=== PATIENT | female | born 1980 | race Caucasian/White ===

== ENCOUNTER 2023-09-13 07:17 | Outpatient (REF) | payer OTHER, SELFPAY ==
[2023-09-15 12:07] LABS: H. pylori Stool Ag, EIA Negative (Negative)
== END 2023-09-13 07:18 | disposition home or self-care (01) ==
LOC: LAB 07:17
PROVIDERS: PCP Nurse Practitioner Family
DX: E66.01 Morbid (severe) obesity due to excess calories (principal)
CPT/HCPCS: 87338

== ENCOUNTER 2023-10-07 15:46 | Outpatient (OUT) | payer OTHER, SELFPAY ==
[2023-10-08 12:10] LABS: PTH, Intact 32 pg/mL (15-65)
== END 2023-10-07 15:47 | disposition home or self-care (01) ==
LOC: LAB 15:46
PROVIDERS: PCP Nurse Practitioner Family; Visit Provider Nurse Practitioner Family
DX: R89.9 Unspecified abnormal finding in specimens from other organs, systems and tissues (principal)
CPT/HCPCS: 36415; 83970

== ENCOUNTER 2023-12-17 00:04 | Emergency (ER) | payer OTHER, SELFPAY ==
[2023-12-17 00:09] VITALS: BP 170/86; PULSE 68; RESP 20; TEMP 36.7; O2SAT 100; BMI 49.3
--- OUTSIDE RECORDS SUMMARY | 2023-12-17 00:10 | XMS_ITS | CCD ---
Author Name Unknown Address [address] [place] [address] Organization [facility] Care Team Providers Care Feed In Worker Name Role Phone GIDEON FELIX Admitting Unavailable GIDEON FELIX Primary Care Unavailable GIDEON FELIX Consulting Unavailable ISIDRO, GIDEON Attending Unavailable GIDEON FELIX Primary Care Unavailable GIDEON FELIX Consulting Unavailable ISIDRO, GIDEON Attending Unavailable ISIDRO, GIDEON Admitting Unavailable Problems Active Problems Problem Classification Problem Date Documented Da te Episodic/Chronic Deficiency and other anemia (1 source) Iron deficiency anemia, unspecified; Translations: [IRON DEFICIENCY ANEMIA UNSPECIFIED] Onset: 06-12-2022 Episodic Past or Other Problems Problem Classification Problem Date Documented Da te Episodic/Chronic Deficiency and other anemia (4 sources) Anemia, unspecified; Translations: [ANEMIA UNSPECIFIED] Onset: 06-30-2021 Episodic Results Test Name Value Interpretation Reference Range Facil ity INSULINon 06-12-2022 Insulin 61.2 uIU/mL Critically high 2.6-24.9 [facility] Comment on above: Performed By: #### I NSULIN #### [facility] [address] [address] [address] Rigo Barker CBC AUTO DIFFon 06-11-2022 BASO # 0.1 103/ul Normal 0.0-0.[address] [facility] Comment on above: Performed By: #### F ETIBC #### [facility] [address] [address] [address] Rigo Barker Basophils/100 WBC (Bld) 0.7 % Normal 0.2-2.[address] [facility] Comment on above: Performed By: #### F ETIBC #### [facility] [address] [address] [address] Rigo Barker EO # 0.2 103/ul Normal 0.0-0.[address] [facility] Comment on above: Performed By: #### F ETIBC #### [facility] [address] [place] [address] Dr. Rigo Barker Eosinophils/100 WBC (Bld) 2.7 % Normal 0.9-7.[address] [facility] Comment on above: Performed By: #### F ETIBC #### [facility] [address] [place] [address] Dr. Rigo Barker Erythrocyte distribution width (RBC) [Ratio] 13.9 % Normal 11.0-15.[address] [facility] Comment on above: Performed By: #### F ETIBC #### [facility] [address] [place] [address] Dr. Rigo Barker Hematocrit (Bld) [Volume fraction] 40.6 % Normal 36.0-48.[address] [facility] Comment on above: Performed By: #### F ETIBC #### [facility] [address] [place] [address] Dr. Rigo Barker Hemoglobin (Bld) [Mass/Vol] 13.0 g/dL Normal 12.0-16.[address] [facility] Comment on above: Performed By: #### F ETIBC #### [facility] [address] [place] [address] Dr. Rigo Barker IG # 0.04 10e3/ul Critically high 0.00-0.03 [facility] Comment on above: Performed By: #### F ETIBC #### [facility] [address] [place] [address] Dr. Rigo Barker IG % 0.5 % Normal 0.0-0.[address] [facility] Comment on above: Performed By: #### F ETIBC #### [facility] [address] [place] [address] Dr. Rigo Barker LYMPH # 2.2 103/ul Normal 1.2-3.[address] [facility] Comment on above: Performed By: #### F ETIBC #### [facility] [address] [place] [address] Dr. Rigo Barker Lymphocytes/100 WBC (Bld) 28.9 % Normal 20.5-60.[address] [facility] Comment on above: Performed By: #### F ETIBC #### [facility] [address] [place] [address] Dr. Rigo Barker MANUAL DIFF REQ NO Normal [facility] Comment on above: Performed By: #### F ETIBC #### [facility] [address] [place] [address] Dr. Rigo Barker MCH (RBC) [Entitic mass] 26.0 pg Critically low 26.7-34.[address] [facility] Comment on above: Performed By: #### F ETIBC #### [facility] [address] [place] [address] Dr. Rigo Barker MCHC (RBC) [Mass/Vol] 32.0 g/dL Normal 29.9-35.[address] [facility] Comment on above: Performed By: #### F ETIBC #### [facility] [address] [place] [address] Dr. Rigo Barker MCV (RBC) [Entitic vol] 81.2 fL Normal 81.0-99.[address] [facility] Comment on above: Performed By: #### F ETIBC #### [facility] [address] [place] [address] Dr. Rigo Barker MONO # 0.5 103/ul Normal 0.3-0.[address] [facility] Comment on above: Performed By: #### F ETIBC #### [facility] [address] [place] [address] Dr. Rigo Barker Monocytes/100 WBC (Bld) 7.2 % Normal 1.7-12.[address] [facility] Comment on above: Performed By: #### F ETIBC #### [facility] [address] [place] [address] Dr. Rigo Barker NEUT # 4.5 103/ul Normal 1.4-6.[address] [facility] Comment on above: Performed By: #### F ETIBC #### [facility] [address] [place] [address] Dr. Rigo Barker Neutrophils/100 WBC (Bld) 60.0 % Normal 43.0-75.[address] [facility] Comment on above: Performed By: #### F ETIBC #### [facility] [address] [address] [address] Rigo Barker Platelet mean volume (Bld) [Entitic vol] 10.1 fL Normal 9.5-13.[address] [facility] Comment on above: Performed By: #### F ETIBC #### [facility] [address] [address] [address] Rigo Barker PLT 259 103/ul Normal 150-[address] [facility] Comment on above: Performed By: #### F ETIBC #### [facility] [address] [place] [address] Dr. Rigo Barker RBC 5.00 106/ul Normal 4.20-5.[address] [facility] Comment on above: Performed By: #### F ETIBC #### [facility] [address] [place] [address] Dr. Rigo Barker WBC 7.5 103/ul Normal 4.0-11.[address] [facility] Comment on above: Performed By: #### F ETIBC #### [facility] [address] [place] [address] Dr. Rigo Barker FERRITINon 06-11-2022 Ferritin [Mass/Vol] 44.0 ng/mL Normal 6.2-137.0 [facility] Comment on above: Performed By: #### F ERR #### [facility] [address] [place] [address] Dr. Rigo Barker FREE THYROXINE INDEX T7on FTI 3.06 Normal 1.30-4.[address] [facility] Comment on above: Performed By: #### T SH, T7, LIPID, CMP #### [facility] [address] [place] [address] Dr. Rigo Barker T3U 30.0 % Normal 30.0-39.[address] [facility] Comment on above: Performed By: #### T SH, T7, LIPID, CMP #### [facility] [address] [place] [address] Dr. Rigo Barker T4 [Mass/Vol] 10.20 ug/dL Normal 4.80-13.90 [facility] Comment on above: Performed By: #### T SH, T7, LIPID, CMP #### [facility] [address] [address] [address] Rigo Barker GLYCOHEMOGLOBIN A1Con 2021 ADA RECOMMENDATION SEE BELOW Normal [facility] Comment on above: Result Comment: ADA RECOMMENDED LIMIT 4.0 - 6.0 ADA THERAPEUTIC TARGET < 7.0 ACTION SUGGESTED > 7.0 Performed By: #### A 1C #### [facility] [address] [address] [address] Rigo Barker Glucose [Mass/Vol] 108 mg/dL Normal [facility] Comment on above: Performed By: #### A 1C #### [facility] [address] [place] [address] Dr. Rigo Barker HbA1c (Bld) [Mass fraction] 5.4 % Normal 4.5-6.[address] [facility] Comment on above: Performed By: #### A 1C #### [facility] [address] [address] [address] Rigo Barker IRON AND TIBCon 06-11-2022 % SATURATION 9.8 % Normal [facility] Comment on above: Performed By: #### F ETIBC #### [facility] [address] [address] [address] Rigo Barker Iron [Mass/Vol] 30.0 ug/dL Critically low 50.0-170.0 [facility] Comment on above: Performed By: #### F ETIBC #### [facility] [address] [address] [address] Rigo Barker Performed By: #### I JOSE M #### [facility] [address] [address] [address] Rigo Barker TIBC DIRECT 307.0 ug/dL Normal 250.0-450.0 [facility] Comment on above: Performed By: #### F ETIBC #### [facility] [address] [place] [address] Dr. Rigo Barker LIPID PROFILEon 06-11-2022 CHOL-HDL RATIO NORM SEE BELOW Normal [facility] Comment on above: Result Comment: 3.3 - 4.4 LOW RISK 4.4 - 7.1 AVERAGE RISK 7.1 - 11.0 MODERATE RISK >11.0 HIGH RISK Performed By: #### T SH, T7, LIPID, CMP #### [facility] [address] [address] [address] Rigo Barker Cholesterol [Mass/Vol] 196 mg/dL Normal <=[address] [facility] Comment on above: Performed By: #### T SH, T7, LIPID, CMP #### [facility] [address] [address] [address] Rigo Barker Cholesterol in HDL [Mass/Vol] 62 mg/dL Critically high 40-[address] [facility] Comment on above: Performed By: #### T SH, T7, LIPID, CMP #### [facility] [address] [place] [address] Dr. Rigo Barker Cholesterol in LDL [Mass/Vol] 118.2 mg/dL Normal [facility] Comment on above: Performed By: #### T SH, T7, LIPID, CMP #### [facility] [address] [address] [address] Rigo Barker Cholesterol.total/Cho lesterol in HDL [Mass ratio] 3.2 {ratio} Normal [facility] Comment on above: Performed By: #### T SH, T7, LIPID, CMP #### [facility] [address] [address] [address] Rigo Barker HDL NORMAL > or = 60 mg/dl - LOW CARDIOVASCULAR RISK <40 mg/dl - HIGH CARDIOVASCULAR RISK Normal [facility] Comment on above: Performed By: #### T SH, T7, LIPID, CMP #### [facility] [address] [address] [address] Rigo Barker LDL CALC NORMAL SEE BELOW Normal [facility] Comment on above: Result Comment: <100 mg/dl OPTIMAL 100 - 129 mg/dl NEAR OR ABOVE OPTIMAL 130 - 159 mg/dl BORDERLINE HIGH 160 - 189 mg/dl HIGH >190 mg/dl VERY HIGH Performed By: #### T SH, T7, LIPID, CMP #### [facility] [address] [address] [address] Rigo Barker Triglyceride [Mass/Vol] 79 mg/dL Normal <=[address] [facility] Comment on above: Performed By: #### T SH, T7, LIPID, CMP #### [facility] [address] [address] [address] Rigo Barker VLDL CALC 15.8 mg/dL Normal [facility] Comment on above: Performed By: #### T SH, T7, LIPID, CMP #### [facility] [address] [address] [address] Rigo Barker PROF 14(COMP METB)on 022 Albumin [Mass/Vol] 3.6 g/dL Normal 3.4-5.0 [facility] Comment on above: Performed By: #### T SH, T7, LIPID, CMP #### [facility] [address] [address] [address] Rigo Barker Albumin/Globulin [Mass ratio] 0.9 {ratio} Normal [facility] Comment on above: Performed By: #### T SH, T7, LIPID, CMP #### [facility] [address] [address] [address] Rigo Barker ALP [Catalytic activity/Vol] 80 U/L Normal 46-[address] [facility] Comment on above: Performed By: #### T SH, T7, LIPID, CMP #### [facility] [address] [address] [address] Rigo Barker ALT [Catalytic activity/Vol] 39 U/L Normal 14-[address] [facility] Comment on above: Performed By: #### T SH, T7, LIPID, CMP #### [facility] [address] [address] [address] Rigo Barker Anion gap [Moles/Vol] 15.6 mmol/L Normal [facility] Comment on above: Performed By: #### T SH, T7, LIPID, CMP #### [facility] [address] [address] [address] Rigo Barker AST [Catalytic activity/Vol] 17 U/L Normal 15-[address] [facility] Comment on above: Performed By: #### T SH, T7, LIPID, CMP #### [facility] [address] [place] [address] Dr. Rigo Barker Bilirubin [Mass/Vol] 0.2 mg/dL Normal 0.2-1.[address] [facility] Comment on above: Performed By: #### T SH, T7, LIPID, CMP #### [facility] [address] [place] [address] Dr. Rigo Barker Calcium [Mass/Vol] 9.1 mg/dL Normal 8.5-10.1 [facility] Comment on above: Performed By: #### T SH, T7, LIPID, CMP #### [facility] [address] [place] [address] Dr. Rigo Barker Chloride [Moles/Vol] 103 mmol/L Normal 98-107 [facility] Comment on above: Performed By: #### T SH, T7, LIPID, CMP #### [facility] [address] [place] [address] Dr. Rigo Barker CO2 [Moles/Vol] 24.1 mmol/L Normal 21.0-32.0 [facility] Comment on above: Performed By: #### T SH, T7, LIPID, CMP #### [facility] [address] [place] [address] Dr. Rigo Barker Creatinine [Mass/Vol] 0.89 mg/dL Normal 0.55-1.[address] [facility] Comment on above: Performed By: #### T SH, T7, LIPID, CMP #### [facility] [address] [place] [address] Dr. Rigo Barker EGFR-AF MACANESE >60 Normal >=60 [facility] Comment on above: Performed By: #### T SH, T7, LIPID, CMP #### [facility] [address] [place] [address] Dr. Rigo Barker EGFR-NON AF MACANESE >60 Normal >=[address] [facility] Comment on above: Performed By: #### T SH, T7, LIPID, CMP #### [facility] [address] [address] [address] Rigo Barker Globulin (S) [Mass/Vol] 3.9 g/dL Normal [facility] Comment on above: Performed By: #### T SH, T7, LIPID, CMP #### [facility] [address] [place] [address] Dr. Rigo Barker Glucose [Mass/Vol] 102 mg/dL Normal 74-106 [facility] Comment on above: Performed By: #### T SH, T7, LIPID, CMP #### [facility] [address] [place] [address] Dr. Rigo Barker Potassium [Moles/Vol] 3.7 mmol/L Normal 3.5-5.1 [facility] Comment on above: Performed By: #### T SH, T7, LIPID, CMP #### [facility] [address] [place] [address] Dr. Rigo Barker Protein [Mass/Vol] 7.5 g/dL Normal 6.4-8.2 [facility] Comment on above: Performed By: #### T SH, T7, LIPID, CMP #### [facility] [address] [place] [address] Dr. Rigo Barker Sodium [Moles/Vol] 139 mmol/L Normal 136-145 [facility] Comment on above: Performed By: #### T SH, T7, LIPID, CMP #### [facility] [address] [place] [address] Dr. Rigo Barker Urea nitrogen [Mass/Vol] 12.0 mg/dL Normal 7.0-18.0 [facility] Comment on above: Performed By: #### T SH, T7, LIPID, CMP #### [facility] [address] [place] [address] Dr. Rigo Barker Urea nitrogen/Creatinine [Mass ratio] 13.5 mg/mg Normal [facility] Comment on above: Performed By: #### T SH, T7, LIPID, CMP #### [facility] [address] [place] [address] Dr. Rigo Barker TSHon 06-11-2022 TSH 2.871 uIU/mL Normal 0.358-3.740 [facility] Comment on above: Performed By: #### T SH, T7, LIPID, CMP #### [facility] [address] [place], [place] [id number] Dr. Rigo Barker CBC AUTO DIFFon 06-30-2021 BASO # 0.1 103/ul Normal 0.0-0.[address] [facility] Comment on above: Performed By: #### C BC #### [facility] [address] [place], [place] [id number] Alix Cecile Basophils/100 WBC (Bld) 0.6 % Normal 0.2-2.[address] [facility] Comment on above: Performed By: #### C BC #### [facility] [address] [place] [address] Alix Cecile EO # 0.2 103/ul Normal 0.0-0.[address] [facility] Comment on above: Performed By: #### C BC #### [facility] [address] [place] [address] Alix Cecile Eosinophils/100 WBC (Bld) 2.5 % Normal 0.9-7.[address] [facility] Comment on above: Performed By: #### C BC #### [facility] [address] [place], [place] [id number] Alix Cecile Erythrocyte distribution width (RBC) [Ratio] 14.5 % Normal 11.0-15.[address] [facility] Comment on above: Performed By: #### C BC #### [facility] [address] [place] [address] Alix Cecile Hematocrit (Bld) [Volume fraction] 34.8 % Critically low 36.0-48.[address] [facility] Comment on above: Performed By: #### C BC #### [facility] [address] [place], [place] [id number] Alix Cecile Hemoglobin (Bld) [Mass/Vol] 11.2 g/dL Critically low 12.0-16.[address] [facility] Comment on above: Performed By: #### C BC #### [facility] [address] [place] [address] Alix Cecile IG # 0.04 10e3/ul Critically high 0.00-0.03 [facility] Comment on above: Performed By: #### C BC #### [facility] [address] [place], [place] [id number] Alixjessi Huber IG % 0.5 % Normal 0.0-0.[address] [facility] Comment on above: Performed By: #### C BC #### [facility] [address] [place] [address] Alixjessi Huber LYMPH # 2.5 103/ul Normal 1.2-3.[address] [facility] Comment on above: Performed By: #### C BC #### [facility] [address] [place] [address] Alix Huber Lymphocytes/100 WBC (Bld) 30.1 % Normal 20.5-60.[address] [facility] Comment on above: Performed By: #### C BC #### [facility] [address] [place] [address] Alix Huber MANUAL DIFF REQ NO Normal [facility] Comment on above: Performed By: #### C BC #### [facility] [address] [place], [place] [id number] Alix Huber MCH (RBC) [Entitic mass] 27.1 pg Normal 26.7-34.[address] [facility] Comment on above: Performed By: #### C BC #### [facility] [address] [place] [address] Alix Huber MCHC (RBC) [Mass/Vol] 32.2 g/dL Normal 29.9-35.[address] [facility] Comment on above: Performed By: #### C BC #### [facility] [address] [place], [place] [id number] Alix Huber MCV (RBC) [Entitic vol] 84.1 fL Normal 81.0-99.[address] [facility] Comment on above: Performed By: #### C BC #### [facility] [address] [place] [address] Alix Cecile MONO # 0.6 103/ul Normal 0.3-0.[address] [facility] Comment on above: Performed By: #### C BC #### [facility] [address] [place], [place] [address] Alix De La Vegaen Monocytes/100 WBC (Bld) 6.7 % Normal 1.7-12.0 [facility] Comment on above: Performed By: #### C BC #### [facility] [address] [place], [place] [id number] Alixjessi De La Vegaen NEUT # 4.9 103/ul Normal 1.4-6.5 [facility] Comment on above: Performed By: #### C BC #### [facility] [address] [place], [place] [id number] Alix De La Vegaen Neutrophils/100 WBC (Bld) 59.6 % Normal 43.0-75.0 [facility] Comment on above: Performed By: #### C BC #### [facility] [address] [place], [place] [id number] Alix Huber Platelet mean volume (Bld) [Entitic vol] 10.1 fL Normal 9.5-13.5 [facility] Comment on above: Performed By: #### C BC #### [facility] [address] [place], [place] [id number] Alixjessi De La Vegaen PLT 299 103/ul Normal 150-450 [facility] Comment on above: Performed By: #### C BC #### [facility] [address] [place], [place] [id number] Alix Cecile RBC 4.14 106/ul Critically low 4.20-5.40 [facility] Comment on above: Performed By: #### C BC #### [facility] [address] [place], [place] [id number] Alixjessi De La Vegaen WBC 8.3 103/ul Normal 4.0-11.0 [facility] Comment on above: Performed By: #### C BC #### [facility] [address] [place], [place] [id number] Alix Huber IRONon 06-30-2021 Iron [Mass/Vol] 40.0 ug/dL Normal 37.0-170.0 [facility] Comment on above: Performed By: #### F ETIBC #### [facility] [address] [place], [place] [address] Dr. Rigo Barker Encounters Encounter Date Encounter Type Care Provider Facility Start: 06-12-2022 Encounter for genera l adult medical examination without abnormal findings GIDEON FELIX [facility] Start: 06-11-2022 End: 06-12-2022 ambulatory GIDEON FELIX Facility:[facility] Start: 06-11-2022 End: 06-12-2022 Encounter for general adult medical examination without abnormal findings GIDEON FELIX Facility:[facility] Start: 06-30-2021 End: 07-01-2021 ambulatory GIDEON FELIX Facility:[facility] Payers Date Payer Category Payer Unknown [id number] 1980 Unknown [id number] 1959 Private Health Insurance [id number] Summary Purpose Family History No Family History Records Found Advance Directives No Advanced Directives Records Found Additional Source Comments INFORMATION SOURCE (unrecogn ized section and content) DATE CREATED AUTHOR 06/16/2022 [facility] FOR RECORDS PERTAINING TO PATIENTS WHO ARE OR HAVE BEEN ENROLLED IN A CHEMICAL DEPENDENCY/SUBSTANCEABUSE PROGRAM, SOME INFORMATION MAY BE OMITTED. This clinical summary was aggregated from multiple sources. Caution should be exercised in using it in the provision of clinical care. This summary normalizes information from multiple sources, and as a consequence, information in this document may materially change the coding, format and clinical context of patient data. In addition, data may be omitted in some cases. CLINICAL DECISIONS SHOULD BE BASED ON THE PRIMARY CLINICAL RECORDS. [facility] provides no warranty or guarantee of the accuracy or completeness of information in this document.
--- NOTE | 2023-12-17 00:50 | ED_ITS ---
HPI - Abdominal Pain General Chief Complaint: Abdominal Pain Stated Complaint: ABD PAIN Time Seen by Provider: 12/17/23 00:30 History of Present Illness HPI narrative: gastric bypass 11/09. Presents complaining of right CVA pain that started tonight and dry heaving and nausea. Pain has decreased some. Denies or fever. Related Data Home Medications Medication Instructions Recorded Confirmed calcium citrate 315 mg-vitamin D3 1 tab PO DAILY 12/17/23 12/17/23 5 mcg (200 unit) tablet citalopram 20 mg tablet mg 12/17/23 ferrous sulfate 325 mg (65 mg mg 12/17/23 iron) tablet omeprazole 20 mg capsule,delayed mg 12/17/23 release ondansetron HCl 4 mg tablet mg 12/17/23 thiamine HCl (vitamin B1) 500 mg 500 mg PO DAILY 12/17/23 12/17/23 tablet ursodiol 300 mg capsule mg 12/17/23 Allergies Allergy/AdvReac Type Severity Reaction Status Date / Time No Known Drug Allergies Allergy Verified 12/17/23 00:17 Review of Systems ROS Status of ROS 10 or more systems reviewed and unremark able except as noted in history and below [facility] Social History Smoking status: Never smoker Exam Constitutional Vital Signs, click to edit/add: Last Vital Signs Temp 98.0 F 12/17/23 00:09 Pulse 65 12/17/23 03:35 Resp 16 12/17/23 03:35 BP 142/80 H 12/17/23 03:35 Pulse Ox 99 12/17/23 03:35 O2 Del Method Room Air 12/17/23 03:35 Common normals: oriented x3, healthy appearing, alert and well nourished Eye Common normals: EOMs intact bilaterally and conjunctivae normal Respiratory Common normals: normal respiratory effort, no retractions and no use of accessory muscles Cardio Common normals: regular rate, regular rhythm, S1 normal heart sound and S2 normal heart sound GI Common normals: Normal to inspection, nondistended, normoactive bowel sounds present Other: right CVA tenderness Extremity Common normals: normal to inspection and full ROM Neuro Common normals: oriented x3, CN's II-XII intact bilaterally, moves all extremities and no focal motor deficits Psych Appearance: grossly normal Course Vital Signs Vital signs: Vital Signs Temperature 98.0 F 12/17/23 00:09 Pulse Rate 68 12/17/23 00:09 Respiratory Rate 20 12/17/23 00:09 Blood Pressure 170/86 H 12/17/23 00:09 Pulse Oximetry 100 12/17/23 00:09 Oxygen Delivery Method Room Air 12/17/23 00:09 Temperature 98.0 F 12/17/23 00:09 Pulse Rate 65 12/17/23 03:35 Respiratory Rate 16 12/17/23 03:35 Blood Pressure 142/80 H 12/17/23 03:35 Pulse Oximetry 99 12/17/23 03:35 Oxygen Delivery Method Room Air 12/17/23 03:35 MDM - Abdominal Pain MDM Narrative Medical decision making narrative: patient presents with right CVA pain and nausea/dry heaving. UA with microscopic hematuria but no infection. CT with evidence of 3mm distal right ureter stone with mild hydronephrosis. Patient is feeling better after hydration. toradol and reglan . Discharged home in improved condition and is to follow up with Urology Lab Data Labs: Lab Results 12/17/23 12/17/23 Range/Units 00:23 00:37 WBC 10.9 (4.0-11.0) 10^3/uL RBC 4.08 L (4.20-5.40) 10^6/uL Hgb 10.6 L (12.0-16.0) g/dL Hct 33.9 L (36.0-48.0) % MCV 83.1 (81.0-99.0) fL MCH 26.0 L (26.7-34.0) pg MCHC 31.3 (29.9-35.2) g/dL RDW 16.5 H (11.0-15.0) % Plt Count 316 (150-450) 10^3/uL MPV 11.7 (9.5-13.5) fL Neut % (Auto) 76.4 H (43.0-75.0) % Lymph % (Auto) 14.1 L (20.5-60.0) % [place] % (Auto) 7.0 (1.7-12.0) % Eos % (Auto) 2.0 (0.9-7.0) % Baso % (Auto) 0.2 (0.2-2.0) % Neut # (Auto) 8.4 H (1.4-6.5) 10^3/uL Lymph # (Auto) 1.5 (1.2-3.8) 10^3/uL [place] # (Auto) 0.8 (0.3-0.8) 10^3/uL Eos # (Auto) 0.2 (0.0-0.7) 10^3/uL Baso # (Auto) 0.0 (0.0-0.1) 10^3/uL Abs Immat Gran (auto) 0.03 (0.00-0.03) 10^3/uL Imm/Tot Granulo (auto) 0.3 (0.0-0.5) % Sodium 140 (136-145) mmol/L Potassium 3.2 L (3.5-5.1) mmol/L Chloride 105 (98-107) mmol/L Carbon Dioxide 22.1 (21.0-32.0) mmol/L Anion Gap 16.1 BUN 13.0 (7.0-18.0) mg/dL Creatinine 0.86 (0.55-1.02) mg/dL Est GFR ( Amer) >60 (>=60) Est GFR (Non-Af Amer) >60 (>=60) BUN/Creatinine Ratio 15.1 Glucose 139 H (74-106) mg/dL Lactate 1.8 (0.4-2.0) mmol/L Calcium 9.5 (8.5-10.1) mg/dL Total Bilirubin 0.4 (0.2-1.0) mg/dL AST 15 (15-37) U/L ALT 24 (14-59) U/L Alkaline Phosphatase 101 (46-116) U/L Troponin I High Sens 10.5 (4.0-51.3) pg/mL Total Protein 7.6 (6.4-8.2) g/dL Albumin 3.7 (3.4-5.0) g/dL Globulin 3.9 g/dL Albumin/Globulin Ratio 0.9 Lipase 76.0 (16.0-77.0) U/L Urine Color Yellow (YELLOW) Urine Clarity Clear (CLEAR) Urine pH 5.5 (5.0-9.0) Ur Specific [place] >=1.030 A (1.005-1.025) Urine Protein 30 A (NEG/TRACE) mg/dL Urine Glucose (UA) Negative (NEGATIVE) mg/dL Urine Ketones >=80 A (NEGATIVE) mg/dL Urine Occult Blood Large A (NEGATIVE) Urine Nitrite Negative (NEGATIVE) Urine Bilirubin Negative (NEGATIVE) Urine Urobilinogen 0.2 (0.2-1.0) EU/dL Ur Leukocyte Esterase Negative (NEGATIVE) Urine RBC 5-10 A (0-2) #/HPF Urine WBC 0-2 A (NONE SEEN) #/HPF Ur Squamous Epith Cells Few A (NONE/RARE) #/LPF Urine Crystals None seen (None Seen) #/HPF Urine Bacteria None seen (NONE SEEN) #/HPF Urine Casts None seen (NONE SEEN) #/LPF Urine Mucus None seen (NONE SEEN) Imaging Data Abdominal x-ray: Radiologist's impression: ITS Impressions Abdomen/Pelvis CT 12/17/23 00:52 IMPRESSION: 1. There is a 0.3 cm calculus in the distal right ureter with mild right hydroureter and hydronephrosis. 2. Cholelithiasis without evidence of acute inflammation. 3. Normal appendix. Electronically authenticated by: Dudley ADAMS Date: 12/17/2023 01:48 Discharge Plan Discharge Chief Complaint: Abdominal Pain Clinical Impression: Calculus of kidney Patient Disposition: Home, Self-Care Condition: Good Mode of Transportation: Private Vehicle Prescriptions / Home Meds: No Action ondansetron HCl 4 mg tablet citalopram 20 mg tablet ferrous sulfate 325 mg (65 mg iron) tablet ursodiol 300 mg capsule omeprazole 20 mg capsule,delayed release(DR/EC) calcium citrate-vitamin D3 315 mg-5 mcg (200 unit) tablet 1 tab PO DAILY thiamine HCl (vitamin B1) 500 mg tablet 500 mg PO DAILY Instructions: Kidney Stones (ED) Additional Instructions: follow up with Urology. Drink plenty of fluids Stand Alone Forms: Portal Instructions Referrals: GIDEON FELIX [Primary Care Provider] - 1 week Discharge Date/Time: 12/17/23 03:30
--- NOTE | 2023-12-17 00:52 | CT_ITS ---
[address] [address] Patient Name: LEWIS HAY MRN: [id number] date: 1980 Sex: F Assigned Patient Location: ER Current Patient Location: ER Accession/Order Number: [id number] Exam Date: 12/17/2023 01:03 Report Date: 12/17/2023 01:48 At the request of: JAVIER DÍAZ Procedure: CT abdomen pelvis wo con EXAM: CT abdomen pelvis wo con HISTORY: right flank pain COMPARISON: None. TECHNIQUE: Noncontrast axial CT images through the abdomen and pelvis were obtained with coronal and sagittal reformats. Dose reduction techniques were achieved by using automated exposure control and/or adjustment of mA and/or kV according to patient size and/or use of iterative reconstruction technique. FINDINGS: The visualized portions of the lung bases are clear. Abdomen: Please note that the sensitivity for detection of focal lesions or vascular disease is markedly reduced without intravenous contrast. The liver and spleen are unremarkable. There is no intra or extrahepatic biliary duct dilatation. There is cholelithiasis without evidence of acute inflammation. There is a 0.3 cm calculus in the distal right ureter with mild right hydroureter and hydronephrosis in addition to perinephric and periureteral fat stranding. The patient is status post a gastric bypass. Otherwise, the pancreas, adrenal glands, left kidney, and bowel loops, including the appendix, are unremarkable. There is no mesenteric or retroperitoneal lymphadenopathy. Pelvis: The bladder and rectum are unremarkable. There is no iliac or inguinal lymphadenopathy. The uterus is present. The ovaries appear within normal limits by CT. Bone windows show no aggressive osseous lesions. CT/CT abdomen pelvis wo con IMPRESSION: 1. There is a 0.3 cm calculus in the distal right ureter with mild right hydroureter and hydronephrosis. 2. Cholelithiasis without evidence of acute inflammation. 3. Normal appendix. Electronically authenticated by: Dudley ADAMS Date: 12/17/2023 01:48
[2023-12-17 01:05] LABS: Basophils Percent Auto 0.2 % (0.2-2.0); Eosinophils Absolute Auto 0.2 10^3/uL (0.0-0.7); Hematocrit 33.9 % (36.0-48.0); Hemoglobin 10.6 g/dL (12.0-16.0); Immature Granulocytes Abs Auto 0.03 10^3/uL (0.00-0.03); Immature Granulocytes Pct Auto 0.3 % (0.0-0.5); Lymphocytes Absolute Auto 1.5 10^3/uL (1.2-3.8); Lymphocytes Percent Auto 14.1 % (20.5-60.0); Mean Corpuscular HGB Conc 31.3 g/dL (29.9-35.2); Mean Corpuscular Volume 83.1 fL (81.0-99.0); Mean Platelet Volume 11.7 fL (9.5-13.5); Monocytes Absolute Auto 0.8 10^3/uL (0.3-0.8); Neutrophils Absolute Auto 8.4 10^3/uL (1.4-6.5); Neutrophils Percent Auto 76.4 % (43.0-75.0); Platelet Count 316 10^3/uL (150-450); Red Blood Count 4.08 10^6/uL (4.20-5.40); Red Cell Distribution Width 16.5 % (11.0-15.0); White Blood Count 10.9 10^3/uL (4.0-11.0)
[2023-12-17 01:10] LABS: Bilirubin Urine NEGATIVE (NEGATIVE); Blood Urine LARGE (NEGATIVE); Clarity Urine CLEAR (CLEAR); Color Urine YELLOW (YELLOW); Glucose Urine UA NEGATIVE (NEGATIVE); Ketones Urine >=80 mg/dL (NEGATIVE); Leukocyte Esterase Urine NEGATIVE (NEGATIVE); Nitrite Urine NEGATIVE (NEGATIVE); Protein Urine 30 mg/dL (NEG/TRACE); Specific Gravity Urine >=1.030 (1.005-1.025); Urobilinogen Urine 0.2 EU/dL (0.2-1.0); pH Urine 5.5 (5.0-9.0)
[2023-12-17] MEDS: ONDANSETRON PF 4 MG/2 ML VIAL IV (01:17)
[2023-12-17] MEDS: KETOROLAC TROMETHAMINE 30 MG/ML VIAL IVP (01:17)
[2023-12-17 01:18] LABS: Urine Microscopic Indicated YES
[2023-12-17 01:20] LABS: Lactate/Lactic Acid 1.8 mmol/L (0.4-2.0)
[2023-12-17 01:27] LABS: Alanine Aminotransferase 24 U/L (14-59); Albumin Globulin Ratio 0.9; Albumin Level 3.7 g/dL (3.4-5.0); Alkaline Phosphatase 101 U/L (46-116); Anion Gap 16.1; Aspartate Amino Transferase 15 U/L (15-37); BUN Creatinine Ratio 15.1; Bilirubin Total 0.4 mg/dL (0.2-1.0); Calcium 9.5 mg/dL (8.5-10.1); Carbon Dioxide 22.1 mmol/L (21.0-32.0); Chloride 105 mmol/L (98-107); Estimated GFR (African America >60 (>=60); Estimated GFR (Non-African Ame >60 (>=60); Globulin 3.9 g/dL; Glucose 139 mg/dL (74-106); Potassium 3.2 mmol/L (3.5-5.1); Sodium 140 mmol/L (136-145); Total Protein 7.6 g/dL (6.4-8.2); Troponin I High Sensitivity 10.5 pg/mL (4.0-51.3)
[2023-12-17 01:39] LABS: Bacteria Urine NONE SEEN #/HPF (NONE SEEN); Cast Seen? NONE SEEN #/LPF (NONE SEEN); Crystals Seen? None Seen #/HPF (None Seen); Mucus Urine NONE SEEN (NONE SEEN); Squamous Epithelial Cell Urine FEW #/LPF (NONE/RARE); WBC Urine 0-2 #/HPF (NONE SEEN)
[2023-12-17 01:53] VITALS: BP 158/80; PULSE 63; RESP 16; O2SAT 100
[2023-12-17] MEDS: 0.9 % SODIUM CHLORIDE 1,000 ML 999 ML IV (02:19)
[2023-12-17] MEDS: METOCLOPRAMIDE HCL 10 MG/2 ML VIAL IVP (02:20)
[2023-12-17] MEDS: TAMSULOSIN HCL 0.4 MG CAPSULE PO (03:20)
[2023-12-17 03:35] VITALS: BP 142/80; PULSE 65; RESP 16; O2SAT 99
== END 2023-12-17 03:30 | disposition home or self-care (01) ==
PROVIDERS: Emergency Provider Internal Medicine; PCP Nurse Practitioner Family
DX: N13.2 Hydronephrosis with renal and ureteral calculous obstruction (principal); Z79.899 Other long term (current) drug therapy
CPT/HCPCS: 36415; 74176; 80053; 81001; 83605; 83690; 84484; 85025; 96374; 96375; 99284; J1885; J2405; J2765

== ENCOUNTER 2023-12-27 13:49 | Outpatient (OUT) | payer OTHER, SELFPAY ==
[2023-12-27 14:22] LABS: Basophils Percent Auto 0.3 % (0.2-2.0); Eosinophils Absolute Auto 0.7 10^3/uL (0.0-0.7); Eosinophils Percent Auto 8.8 % (0.9-7.0); Hematocrit 31.9 % (36.0-48.0); Immature Granulocytes Abs Auto 0.01 10^3/uL (0.00-0.03); Immature Granulocytes Pct Auto 0.1 % (0.0-0.5); Lymphocytes Absolute Auto 1.9 10^3/uL (1.2-3.8); Lymphocytes Percent Auto 24.5 % (20.5-60.0); Mean Corpuscular HGB Conc 31.3 g/dL (29.9-35.2); Mean Corpuscular Hemoglobin 26.2 pg (26.7-34.0); Mean Corpuscular Volume 83.5 fL (81.0-99.0); Mean Platelet Volume 11.1 fL (9.5-13.5); Monocytes Absolute Auto 0.8 10^3/uL (0.3-0.8); Monocytes Percent Auto 10.1 % (1.7-12.0); Neutrophils Absolute Auto 4.4 10^3/uL (1.4-6.5); Neutrophils Percent Auto 56.2 % (43.0-75.0); Platelet Count 302 10^3/uL (150-450); Red Blood Count 3.82 10^6/uL (4.20-5.40); Red Cell Distribution Width 16.5 % (11.0-15.0); White Blood Count 7.8 10^3/uL (4.0-11.0)
[2023-12-27 14:54] LABS: Percent Iron Saturation 9.3 %
[2023-12-27 14:58] LABS: Alanine Aminotransferase 25 U/L (14-59); Albumin Globulin Ratio 0.9; Alkaline Phosphatase 76 U/L (46-116); Anion Gap 11.1; Aspartate Amino Transferase 16 U/L (15-37); BUN Creatinine Ratio 16.2; Bilirubin Total 0.3 mg/dL (0.2-1.0); Calcium 8.7 mg/dL (8.5-10.1); Carbon Dioxide 27.1 mmol/L (21.0-32.0); Chloride 105 mmol/L (98-107); Estimated GFR (African America >60 (>=60); Estimated GFR (Non-African Ame >60 (>=60); Globulin 3.5 g/dL; Glucose 84 mg/dL (74-106); Magnesium 1.5 mg/dL (1.8-2.4); Phosphorus 2.4 mg/dL (2.6-4.7); Potassium 3.2 mmol/L (3.5-5.1); Sodium 140 mmol/L (136-145); Total Protein 6.5 g/dL (6.4-8.2)
[2024-01-02 20:07] LABS: Vitamin B1 (Thiamine), Blood 156.9 nmol/L (66.5-200.0)
== END 2023-12-27 13:50 | disposition home or self-care (01) ==
LOC: LAB 13:49
PROVIDERS: PCP Nurse Practitioner Family
DX: K90.9 Intestinal malabsorption, unspecified (principal); Z98.84 Bariatric surgery status; I10 Essential (primary) hypertension; M19.90 Unspecified osteoarthritis, unspecified site; R60.9 Edema, unspecified; K21.00 Gastro-esophageal reflux disease with esophagitis, without bleeding
CPT/HCPCS: 36415; 80053; 82306; 82607; 82728; 82746; 83540; 83550; 83735; 84100; 84425; 85025

== ENCOUNTER 2024-05-01 11:23 | Outpatient (OUT) | payer OTHER, SELFPAY ==
--- OUTSIDE RECORDS SUMMARY | 2024-05-01 11:29 | XMS_ITS | CCD ---
Author Organization [facility] Care Team Providers Care Chief Of Pediatric Urology Name Role Phone GIDEON FELIX Admitting Unavailable GIDEON FELIX Primary Care Unavailable ISIDRO, GIDEON Consulting Unavailable ISIDRO, GIDEON Attending Unavailable ISIDRO, GIDEON Primary Care Unavailable ISIDRO, GIDEON Consulting Unavailable ISIDRO, GIDEON Attending Unavailable ISIDRO, [...] 06-12-2022 Insulin 61.2 uIU/mL Critically high 2.6-24.9 [facility] Comment on above: Performed By: #### I NSULIN #### [facility] [address] [place] [address] Dr. Rigo Barker CBC AUTO DIFFon 06-11-2022 BASO # 0.1 103/ul Normal 0.0-0.1 [facility] Comment on above: Performed By: #### F ETIBC #### [facility] [address] [address] [address] Rigo Barker Basophils/100 WBC (Bld) 0.7 % Normal 0.2-2.0 [facility] Comment on above: Performed By: #### F ETIBC #### [facility] [address] [place] [address] Dr. Rigo Barker EO # 0.2 103/ul Normal 0.0-0.7 [facility] Comment on above: Performed By: #### F ETIBC #### [facility] [address] [place] [address] Dr. Rigo Barker Eosinophils/100 WBC (Bld) 2.7 % Normal 0.9-7.0 [facility] Comment on above: Performed By: #### F ETIBC #### [facility] [address] [place] [address] Dr. Rigo Barker Erythrocyte distribution width (RBC) [Ratio] 13.9 % Normal 11.0-15.0 [facility] Comment on above: Performed By: #### F ETIBC #### [facility] [address] [place] [address] Dr. Rigo Barker Hematocrit (Bld) [Volume fraction] 40.6 % Normal 36.0-48.0 [facility] Comment on above: Performed By: #### F ETIBC #### [facility] [address] [place] [address] Dr. Rigo Barker Hemoglobin (Bld) [Mass/Vol] 13.0 g/dL Normal 12.0-16.0 [facility] Comment on above: Performed By: #### F ETIBC #### [facility] [address] [place] [address] Dr. Rigo Barker IG # 0.04 10e3/ul Critically high 0.00-0.03 [facility] Comment on above: Performed By: #### F ETIBC #### [facility] [address] [place] [address] Dr. Rigo Barker IG % 0.5 % Normal 0.0-0.5 [facility] Comment on above: Performed By: #### F ETIBC #### [facility] [address] [place] [address] Dr. Rigo Barker LYMPH # 2.2 103/ul Normal 1.2-3.8 [facility] Comment on above: Performed By: #### F ETIBC #### [facility] [address] [place] [address] Dr. Rigo Barker Lymphocytes/100 WBC (Bld) 28.9 % Normal 20.5-60.0 [facility] Comment on above: Performed By: #### F ETIBC #### [facility] [address] [place] [address] Dr. Rigo Barker MANUAL DIFF REQ NO Normal [facility] Comment on above: Performed By: #### F ETIBC #### [facility] [address] [place] [address] Dr. Rigo Barker MCH (RBC) [Entitic mass] 26.0 pg Critically low 26.7-34.0 [facility] Comment on above: Performed By: #### F ETIBC #### [facility] [address] [place] [address] Dr. Rigo Barker MCHC (RBC) [Mass/Vol] 32.0 g/dL Normal 29.9-35.2 [facility] Comment on above: Performed By: #### F ETIBC #### [facility] [address] [place] [address] Dr. Rigo Barker MCV (RBC) [Entitic vol] 81.2 fL Normal 81.0-99.0 [facility] Comment on above: Performed By: #### F ETIBC #### [facility] [address] [place] [address] Dr. Rigo Barker MONO # 0.5 103/ul Normal 0.3-0.8 [facility] Comment on above: Performed By: #### F ETIBC #### [facility] [address] [place] [address] Dr. Rigo Barker Monocytes/100 WBC (Bld) 7.2 % Normal 1.7-12.0 [facility] Comment on above: Performed By: #### F ETIBC #### [facility] [address] [place] [address] Dr. Rigo Barker NEUT # 4.5 103/ul Normal 1.4-6.5 [facility] Comment on above: Performed By: #### F ETIBC #### [facility] [address] [place] [address] Dr. Rigo Barker Neutrophils/100 WBC (Bld) 60.0 % Normal 43.0-75.0 [facility] Comment on above: Performed By: #### F ETIBC #### [facility] [address] [place] [address] Dr. Rigo Barker Platelet mean volume (Bld) [Entitic vol] 10.1 fL Normal 9.5-13.5 [facility] Comment on above: Performed By: #### F ETIBC #### [facility] [address] [place] [address] Dr. Rigo Barker PLT 259 103/ul Normal 150-450 [facility] Comment on above: Performed By: #### F ETIBC #### [facility] [address] [place] [address] Dr. Rigo Barker RBC 5.00 106/ul Normal 4.20-5.40 [facility] Comment on above: Performed By: #### F ETIBC #### [facility] [address] [place] [address] Dr. Rigo Barker WBC 7.5 103/ul Normal 4.0-11.0 [facility] Comment on above: Performed By: #### F ETIBC #### [facility] [address] [place] [address] Dr. Rigo Barker FERRITINon 06-11-2022 Ferritin [Mass/Vol] 44.0 ng/mL Normal 6.2-137.0 [facility] Comment on above: Performed By: #### F ERR #### [facility] [address] [place] [address] Dr. Rigo Barker FREE THYROXINE INDEX T7on FTI 3.06 Normal 1.30-4.50 [facility] Comment on above: Performed By: #### T SH, T7, LIPID, CMP #### [facility] [address] [place] [address] Dr. Rigo Barker T3U 30.0 % Normal 30.0-39.0 [facility] Comment on above: Performed By: #### T SH, T7, LIPID, CMP #### [facility] [address] [place] [address] Dr. Rigo Barker T4 [Mass/Vol] 10.20 ug/dL Normal 4.80-13.90 [facility] Comment on above: Performed By: #### T SH, T7, LIPID, CMP #### [facility] [address] [address] [address] Rigo Barker GLYCOHEMOGLOBIN A1Con 2021 ADA RECOMMENDATION SEE BELOW Normal [facility] Comment on above: Result Comment: ADA RECOMMENDED LIMIT 4.0 - 6.0 ADA THERAPEUTIC TARGET < 7.0 ACTION SUGGESTED > 7.0 Performed By: #### A 1C #### [facility] [address] [address] [address] Rigo Barker Glucose [Mass/Vol] 108 mg/dL Normal [facility] Comment on above: Performed By: #### A 1C #### [facility] [address] [address] [address] Rigo Barker HbA1c (Bld) [Mass fraction] 5.4 % Normal 4.5-6.2 [facility] Comment on above: Performed By: #### A 1C #### [facility] [address] [address] [address] Rigo Barker IRON AND TIBCon 06-11-2022 % SATURATION 9.8 % Normal [facility] Comment on above: Performed By: #### F ETIBC #### [facility] [address] [address] [address] Rigo Barker Iron [Mass/Vol] 30.0 ug/dL Critically low 50.0-170.0 [facility] Comment on above: Performed By: #### F ETIBC #### [facility] [address] [address] [address] Rigo Barker Performed By: #### I JOSE M #### [facility] [address] [address] [address] Rigo Barker TIBC DIRECT 307.0 ug/dL Normal 250.0-450.0 [facility] Comment on above: Performed By: #### F ETIBC #### [facility] [address] [place] [address] Dr. Rigo Barker LIPID PROFILEon 06-11-2022 CHOL-HDL RATIO NORM SEE BELOW Normal [facility] Comment on above: Result Comment: 3.3 - 4.4 LOW RISK 4.4 - 7.1 AVERAGE RISK 7.1 - 11.0 MODERATE RISK >11.0 HIGH RISK Performed By: #### T SH, T7, LIPID, CMP #### [facility] [address] [address] [address] Rigo Barker Cholesterol [Mass/Vol] 196 mg/dL Normal <=200 [facility] Comment on above: Performed By: #### T SH, T7, LIPID, CMP #### [facility] [address] [address] [address] Rigo Barker Cholesterol in HDL [Mass/Vol] 62 mg/dL Critically high 40-60 [facility] Comment on above: Performed By: #### T SH, T7, LIPID, CMP #### [facility] [address] [address] [address] Rigo Barker Cholesterol in LDL [Mass/Vol] 118.2 mg/dL Normal [facility] Comment on above: Performed By: #### T SH, T7, LIPID, CMP #### [facility] [address] [address] [address] Rigo Barker Cholesterol.total/Cho lesterol in HDL [Mass ratio] 3.2 {ratio} Normal [facility] Comment on above: Performed By: #### T SH, T7, LIPID, CMP #### [facility] [address] [place] [address] Dr. Rigo Barker HDL NORMAL > or = 60 mg/dl - LOW CARDIOVASCULAR RISK <40 mg/dl - HIGH CARDIOVASCULAR RISK Normal [facility] Comment on above: Performed By: #### T SH, T7, LIPID, CMP #### [facility] [address] [address] [address] Rigo Barker LDL CALC NORMAL SEE BELOW Normal [facility] Comment on above: Result Comment: <100 mg/dl OPTIMAL 100 - 129 mg/dl NEAR OR ABOVE OPTIMAL 130 - 159 mg/dl BORDERLINE HIGH 160 - 189 mg/dl HIGH >190 mg/dl VERY HIGH Performed By: #### T SH, T7, LIPID, CMP #### [facility] [address] [address] [address] Rigo Barker Triglyceride [Mass/Vol] 79 mg/dL Normal <=150 [facility] Comment on above: Performed By: #### T SH, T7, LIPID, CMP #### [facility] [address] [address] [address] Rigo Barker VLDL CALC 15.8 mg/dL Normal [facility] Comment on above: Performed By: #### T SH, T7, LIPID, CMP #### [facility] [address] [address] [address] Rigo Barker PROF 14(COMP METB)on 022 Albumin [Mass/Vol] 3.6 g/dL Normal 3.4-5.0 [facility] Comment on above: Performed By: #### T SH, T7, LIPID, CMP #### [facility] [address] [place] [address] Dr. Rigo Barker Albumin/Globulin [Mass ratio] 0.9 {ratio} Normal [facility] Comment on above: Performed By: #### T SH, T7, LIPID, CMP #### [facility] [address] [address] [address] Rigo Barker ALP [Catalytic activity/Vol] 80 U/L Normal 46-116 [facility] Comment on above: Performed By: #### T SH, T7, LIPID, CMP #### [facility] [address] [place] [address] Dr. Rigo Barker ALT [Catalytic activity/Vol] 39 U/L Normal 14-59 [facility] Comment on above: Performed By: #### T SH, T7, LIPID, CMP #### [facility] [address] [address] [address] Rigo Barker Anion gap [Moles/Vol] 15.6 mmol/L Normal [facility] Comment on above: Performed By: #### T SH, T7, LIPID, CMP #### [facility] [address] [address] [address] Rigo Barker AST [Catalytic activity/Vol] 17 U/L Normal 15-37 [facility] Comment on above: Performed By: #### T SH, T7, LIPID, CMP #### [facility] [address] [place] [address] Dr. Rigo Barker Bilirubin [Mass/Vol] 0.2 mg/dL Normal 0.2-1.0 [facility] Comment on above: Performed By: #### T SH, T7, LIPID, CMP #### [facility] [address] [place] [address] Dr. Rigo Barker Calcium [Mass/Vol] 9.1 mg/dL Normal 8.5-10.1 [facility] Comment on above: Performed By: #### T SH, T7, LIPID, CMP #### [facility] [address] [place] [address] Dr. Rigo Barker Chloride [Moles/Vol] 103 mmol/L Normal 98-107 [facility] Comment on above: Performed By: #### T SH, T7, LIPID, CMP #### [facility] [address] [place] [address] Dr. Rigo Barker CO2 [Moles/Vol] 24.1 mmol/L Normal 21.0-32.0 [facility] Comment on above: Performed By: #### T SH, T7, LIPID, CMP #### [facility] [address] [place] [address] Dr. Rigo Barker Creatinine [Mass/Vol] 0.89 mg/dL Normal 0.55-1.02 [facility] Comment on above: Performed By: #### T SH, T7, LIPID, CMP #### [facility] [address] [place] [address] Dr. Rigo Barker EGFR-AF MALAYSIAN >60 Normal >=60 [facility] Comment on above: Performed By: #### T SH, T7, LIPID, CMP #### [facility] [address] [place] [address] Dr. Rigo Barker EGFR-NON AF MALAYSIAN >60 Normal >=60 [facility] Comment on above: Performed By: #### T SH, T7, LIPID, CMP #### [facility] [address] [place] [address] Dr. Rigo Barker Globulin (S) [Mass/Vol] 3.9 g/dL Normal [facility] Comment on above: Performed By: #### T SH, T7, LIPID, CMP #### [facility] [address] [address] [address] Rigo Barker Glucose [Mass/Vol] 102 mg/dL Normal 74-106 [facility] Comment on above: Performed By: #### T SH, T7, LIPID, CMP #### [facility] [address] [place] [address] Dr. Rigo Barker Potassium [Moles/Vol] 3.7 mmol/L Normal 3.5-5.1 [facility] Comment on above: Performed By: #### T SH, T7, LIPID, CMP #### [facility] [address] [place] [address] Dr. Rigo Barker Protein [Mass/Vol] 7.5 g/dL Normal 6.4-8.2 [facility] Comment on above: Performed By: #### T SH, T7, LIPID, CMP #### [facility] [address] [place] [address] Dr. Rigo Barker Sodium [Moles/Vol] 139 mmol/L Normal 136-145 [facility] Comment on above: Performed By: #### T SH, T7, LIPID, CMP #### [facility] [address] [place] [address] Dr. Rigo Barker Urea nitrogen [Mass/Vol] 12.0 mg/dL Normal 7.0-18.0 [facility] Comment on above: Performed By: #### T SH, T7, LIPID, CMP #### [facility] [address] [place] [address] Dr. Rigo Barker Urea nitrogen/Creatinine [Mass ratio] 13.5 mg/mg Normal [facility] Comment on above: Performed By: #### T SH, T7, LIPID, CMP #### [facility] [address] [place] [address] Dr. Rigo Barker TSHon 06-11-2022 TSH 2.871 uIU/mL Normal 0.358-3.740 [facility] Comment on above: Performed By: #### T SH, T7, LIPID, CMP #### [facility] [address] [place], [place] [address] Dr. Rigo Barker CBC AUTO DIFFon 06-30-2021 BASO # 0.1 103/ul Normal 0.0-0.1 [facility] Comment on above: Performed By: #### C BC #### [facility] [address] [id number] Alix Cecile Basophils/100 WBC (Bld) 0.6 % Normal 0.2-2.0 [facility] Comment on above: Performed By: #### C BC #### [facility] [address] [id number] Alix Cecile EO # 0.2 103/ul Normal 0.0-0.7 [facility] Comment on above: Performed By: #### C BC #### [facility] [address] [address] Alix Cecile Eosinophils/100 WBC (Bld) 2.5 % Normal 0.9-7.0 [facility] Comment on above: Performed By: #### C BC #### [facility] [address] [id number] Alix Cecile Erythrocyte distribution width (RBC) [Ratio] 14.5 % Normal 11.0-15.0 [facility] Comment on above: Performed By: #### C BC #### [facility] [address] [id number] Alix Cecile Hematocrit (Bld) [Volume fraction] 34.8 % Critically low 36.0-48.0 [facility] Comment on above: Performed By: #### C BC #### [facility] [address] [id number] Alix Cecile Hemoglobin (Bld) [Mass/Vol] 11.2 g/dL Critically low 12.0-16.0 [facility] Comment on above: Performed By: #### C BC #### [facility] [address] [id number] Alix Cecile IG # 0.04 10e3/ul Critically high 0.00-0.03 [facility] Comment on above: Performed By: #### C BC #### [facility] [address] [place], [place] [address] Alix Cecile IG % 0.5 % Normal 0.0-0.5 [facility] Comment on above: Performed By: #### C BC #### [facility] [address] [place], [place] [address] Alix Cecile LYMPH # 2.5 103/ul Normal 1.2-3.8 [facility] Comment on above: Performed By: #### C BC #### [facility] [address] [place] [address] Alixjessi Huber Lymphocytes/100 WBC (Bld) 30.1 % Normal 20.5-60.0 [facility] Comment on above: Performed By: #### C BC #### [facility] [address] [place] [address] Alix Cecile MANUAL DIFF REQ NO Normal [facility] Comment on above: Performed By: #### C BC #### [facility] [address] [place] [address] Alix Cecile MCH (RBC) [Entitic mass] 27.1 pg Normal 26.7-34.0 [facility] Comment on above: Performed By: #### C BC #### [facility] [address] [place] [address] Alixjessi Huber MCHC (RBC) [Mass/Vol] 32.2 g/dL Normal 29.9-35.2 [facility] Comment on above: Performed By: #### C BC #### [facility] [address] [place] [address] Alix Cecile MCV (RBC) [Entitic vol] 84.1 fL Normal 81.0-99.0 [facility] Comment on above: Performed By: #### C BC #### [facility] [address] [place] [address] Alix Cecile MONO # 0.6 103/ul Normal 0.3-0.8 [facility] Comment on above: Performed By: #### C BC #### [facility] [address] [place], [place] [address] Alix Cecile Monocytes/100 WBC (Bld) 6.7 % Normal 1.7-12.0 [facility] Comment on above: Performed By: #### C BC #### [facility] [address] [place], [place] [address] Alix Huber NEUT # 4.9 103/ul Normal 1.4-6.5 [facility] Comment on above: Performed By: #### C BC #### [facility] [address] [place], [place] [address] Alix De La Vegaen Neutrophils/100 WBC (Bld) 59.6 % Normal 43.0-75.0 [facility] Comment on above: Performed By: #### C BC #### [facility] [address] [place], [place] [address] Alix Huber Platelet mean volume (Bld) [Entitic vol] 10.1 fL Normal 9.5-13.5 [facility] Comment on above: Performed By: #### C BC #### [facility] [address] [place], [place] [address] Alix Cecile PLT 299 103/ul Normal 150-450 [facility] Comment on above: Performed By: #### C BC #### [facility] [address] [place], [place] [address] Alix Cecile RBC 4.14 106/ul Critically low 4.20-5.40 [facility] Comment on above: Performed By: #### C BC #### [facility] [address] [place], [place] [address] Alix Cecile WBC 8.3 103/ul Normal 4.0-11.0 [facility] Comment on above: Performed By: #### C BC #### [facility] [address] [place], [place] [address] Alix Huber IRONon 06-30-2021 Iron [Mass/Vol] 40.0 ug/dL Normal 37.0-170.0 [facility] Comment on above: Performed By: #### F ETIBC #### [facility] [address] [place], [place] [address] Dr. Rigo Barker Encounters Encounter Date Encounter Type Care Provider Facility Start: 06-12-2022 Encounter for genera l adult medical examination without abnormal findings GIDEON FELIX [facility] Start: 06-11-2022 End: 06-12-2022 ambulatory GIDEON FELIX Facility:[facility] Start: 06-11-2022 End: 06-12-2022 Encounter for general adult medical examination without abnormal findings GIDEON FELIX Facility:[facility] Start: 06-30-2021 End: 07-01-2021 ambulatory GIDEONLOVE FELIX Facility:[facility] Payers Date Payer Category Payer Unknown [id number] 1980 Unknown [id number] 1959 Private Health Insurance [id number] Summary Purpose Family History No Family History Records Found Advance Directives No Advanced Directives Records Found Additional Source Comments INFORMATION SOURCE (unrecogn ized section and content) DATE CREATED AUTHOR 06/16/2022 [facility] FOR RECORDS PERTAINING TO PATIENTS WHO ARE [...] BE BASED ON THE PRIMARY CLINICAL RECORDS. [facility] provides no warranty or guarantee of the accuracy or completeness of information in this document.
[2024-05-01 11:44] LABS: Basophils Percent Auto 0.3 % (0.2-2.0); Eosinophils Absolute Auto 0.1 10^3/uL (0.0-0.7); Eosinophils Percent Auto 1.8 % (0.9-7.0); Hematocrit 33.3 % (36.0-48.0); Hemoglobin 11.1 g/dL (12.0-16.0); Immature Granulocytes Abs Auto 0.01 10^3/uL (0.00-0.03); Immature Granulocytes Pct Auto 0.1 % (0.0-0.5); Lymphocytes Absolute Auto 2.3 10^3/uL (1.2-3.8); Lymphocytes Percent Auto 33.3 % (20.5-60.0); Mean Corpuscular HGB Conc 33.3 g/dL (29.9-35.2); Mean Corpuscular Hemoglobin 26.2 pg (26.7-34.0); Mean Corpuscular Volume 78.7 fL (81.0-99.0); Mean Platelet Volume 11.1 fL (9.5-13.5); Monocytes Absolute Auto 0.5 10^3/uL (0.3-0.8); Monocytes Percent Auto 7.1 % (1.7-12.0); Neutrophils Absolute Auto 3.9 10^3/uL (1.4-6.5); Neutrophils Percent Auto 57.4 % (43.0-75.0); Platelet Count 238 10^3/uL (150-450); Red Blood Count 4.23 10^6/uL (4.20-5.40); Red Cell Distribution Width 15.6 % (11.0-15.0); White Blood Count 6.8 10^3/uL (4.0-11.0)
[2024-05-01 13:17] LABS: Alanine Aminotransferase 25 U/L (14-59); Albumin Globulin Ratio 1.1; Albumin Level 3.5 g/dL (3.4-5.0); Alkaline Phosphatase 102 U/L (46-116); Anion Gap 11.4; Aspartate Amino Transferase 14 U/L (15-37); BUN Creatinine Ratio 17.6; Bilirubin Total 0.3 mg/dL (0.2-1.0); Calcium 9.1 mg/dL (8.5-10.1); Carbon Dioxide 24.6 mmol/L (21.0-32.0); Chloride 107 mmol/L (98-107); Estimated GFR (African America >60 (>=60); Estimated GFR (Non-African Ame >60 (>=60); Globulin 3.3 g/dL; Glucose 89 mg/dL (74-106); Percent Iron Saturation 13.7 %; Phosphorus 4.1 mg/dL (2.6-4.7); Sodium 139 mmol/L (136-145); Total Protein 6.8 g/dL (6.4-8.2)
[2024-05-05 11:09] LABS: Vitamin B1 (Thiamine), Blood 167.1 nmol/L (66.5-200.0)
== END 2024-05-01 11:24 | disposition home or self-care (01) ==
PROVIDERS: PCP Nurse Practitioner Family; Visit Provider Nurse Practitioner Family
DX: K21.9 Gastro-esophageal reflux disease without esophagitis (principal); Z98.84 Bariatric surgery status; K90.9 Intestinal malabsorption, unspecified; I10 Essential (primary) hypertension; M19.90 Unspecified osteoarthritis, unspecified site
CPT/HCPCS: 36415; 80053; 82306; 82607; 82728; 82746; 83540; 83550; 83735; 84100; 84425; 85025

== ENCOUNTER 2024-08-08 08:04 | Outpatient (OUT) | payer OTHER, SELFPAY ==
--- OUTSIDE RECORDS SUMMARY | 2024-08-08 08:06 | XMS_ITS | CCD ---
Author Organization [facility] Care Team Providers Care Parking Lot Attendant And Cashier Name Role Phone GIDEON FELIX Admitting Unavailable GIDEON FELIX Primary Care Unavailable GIDEON FELIX Consulting Unavailable ISIDRO, GIDEON Attending Unavailable GIDEON FELIX Primary Care Unavailable ISIDRO, [...] Insulin 61.2 uIU/mL Critically high 2.6-24.9 [facility] Comment on above: Performed By: #### I NSULIN #### [facility] [address] [place] [address] Dr. Rigo Barker CBC AUTO DIFFon 06-11-2022 BASO # 0.1 103/ul Normal 0.0-0.1 [facility] Comment on above: Performed By: #### F ETIBC #### [facility] [address] [address] [address] Rigo Barker Basophils/100 WBC (Bld) 0.7 % Normal 0.2-2.0 [facility] Comment on above: Performed By: #### F ETIBC #### [facility] [address] [place] [address] Dr. Rigo Barker EO # 0.2 103/ul Normal 0.0-0.7 [facility] Comment on above: Performed By: #### F ETIBC #### [facility] [address] [place] [address] Dr. Rigo Barker Eosinophils/100 WBC (Bld) 2.7 % Normal 0.9-7.0 [facility] Comment on above: Performed By: #### F ETIBC #### [facility] [address] [place] [address] Dr. Rigo Barker Erythrocyte distribution width (RBC) [Ratio] 13.9 % Normal 11.0-15.0 [facility] Comment on above: Performed By: #### F ETIBC #### [facility] [address] [place] [address] Dr. Rigo Barker Hematocrit (Bld) [Volume fraction] 40.6 % Normal 36.0-48.0 [facility] Comment on above: Performed By: #### F ETIBC #### [facility] [address] [place] [address] Dr. Rigo Barker Hemoglobin (Bld) [Mass/Vol] 13.0 g/dL Normal 12.0-16.0 [facility] Comment on above: Performed By: #### F ETIBC #### [facility] [address] [place] [address] Dr. Rigo Barker IG # 0.04 10e3/ul Critically high 0.00-0.03 [facility] Comment on above: Performed By: #### F ETIBC #### [facility] [address] [place] [address] Dr. Rigo Barker IG % 0.5 % Normal 0.0-0.5 [facility] Comment on above: Performed By: #### F ETIBC #### [facility] [address] [place] [address] Dr. Rigo Barker LYMPH # 2.2 103/ul Normal 1.2-3.8 [facility] Comment on above: Performed By: #### F ETIBC #### [facility] [address] [place] [address] Dr. Rigo Barker Lymphocytes/100 WBC (Bld) 28.9 % Normal 20.5-60.0 [facility] Comment on above: Performed By: #### F ETIBC #### [facility] [address] [place] [address] Dr. Rigo Barker MANUAL DIFF REQ NO Normal [facility] Comment on above: Performed By: #### F ETIBC #### [facility] [address] [place] [address] Dr. Rigo Barker MCH (RBC) [Entitic mass] 26.0 pg Critically low 26.7-34.0 [facility] Comment on above: Performed By: #### F ETIBC #### [facility] [address] [place] [address] Dr. Rigo Barker MCHC (RBC) [Mass/Vol] 32.0 g/dL Normal 29.9-35.2 [facility] Comment on above: Performed By: #### F ETIBC #### [facility] [address] [place] [address] Dr. Rigo Barker MCV (RBC) [Entitic vol] 81.2 fL Normal 81.0-99.0 [facility] Comment on above: Performed By: #### F ETIBC #### [facility] [address] [place] [address] Dr. Rigo Barker MONO # 0.5 103/ul Normal 0.3-0.8 [facility] Comment on above: Performed By: #### F ETIBC #### [facility] [address] [place] [address] Dr. Rigo Barker Monocytes/100 WBC (Bld) 7.2 % Normal 1.7-12.0 [facility] Comment on above: Performed By: #### F ETIBC #### [facility] [address] [place] [address] Dr. Rgio Barker NEUT # 4.5 103/ul Normal 1.4-6.5 [facility] Comment on above: Performed By: #### F ETIBC #### [facility] [address] [place] [address] Dr. Rigo Barker Neutrophils/100 WBC (Bld) 60.0 % Normal 43.0-75.0 [facility] Comment on above: Performed By: #### F ETIBC #### [facility] [address] [address] [address] Rigo Barker Platelet mean volume (Bld) [Entitic vol] 10.1 fL Normal 9.5-13.5 [facility] Comment on above: Performed By: #### F ETIBC #### [facility] [address] [place] [address] Dr. Rigo Barker PLT 259 103/ul Normal 150-450 [facility] Comment on above: Performed By: #### F ETIBC #### [facility] [address] [place] [address] Dr. Rigo Barker RBC 5.00 106/ul Normal 4.20-5.40 [facility] Comment on above: Performed By: #### F ETIBC #### [facility] [address] [place] [address] Dr. Rigo Barker WBC 7.5 103/ul Normal 4.0-11.0 [facility] Comment on above: Performed By: #### F ETIBC #### [facility] [address] [place] [address] Dr. Rigo Barker FERRITINon 06-11-2022 Ferritin [Mass/Vol] 44.0 ng/mL Normal 6.2-137.0 [facility] Comment on above: Performed By: #### F ERR #### [facility] [address] [place] [address] Dr. Rigo Barker FREE THYROXINE INDEX T7on FTI 3.06 Normal 1.30-4.50 [facility] Comment on above: Performed By: #### T SH, T7, LIPID, CMP #### [facility] [address] [place] [address] Dr. Rigo Barker T3U 30.0 % Normal 30.0-39.0 [facility] Comment on above: Performed By: #### T SH, T7, LIPID, CMP #### [facility] [address] [place] [address] Dr. Rigo Barker T4 [Mass/Vol] 10.20 ug/dL Normal 4.80-13.90 [facility] Comment on above: Performed By: #### T SH, T7, LIPID, CMP #### [facility] [address] [address] [address] Rigo Barker GLYCOHEMOGLOBIN A1Con 2021 ADA RECOMMENDATION SEE BELOW Normal [facility] Comment on above: Result Comment: ADA RECOMMENDED LIMIT 4.0 - 6.0 ADA THERAPEUTIC TARGET < 7.0 ACTION SUGGESTED > 7.0 Performed By: #### A 1C #### [facility] [address] [address] [address] Rigo Barker Glucose [Mass/Vol] 108 mg/dL Normal [facility] Comment on above: Performed By: #### A 1C #### [facility] [address] [address] [address] Rigo Barker HbA1c (Bld) [Mass fraction] 5.4 % Normal 4.5-6.2 [facility] Comment on above: Performed By: #### A 1C #### [facility] [address] [address] [address] Rigo Barker IRON AND TIBCon 06-11-2022 % SATURATION 9.8 % Normal [facility] Comment on above: Performed By: #### F ETIBC #### [facility] [address] [address] [address] Rigo Barker Iron [Mass/Vol] 30.0 ug/dL Critically low 50.0-170.[address] [facility] Comment on above: Performed By: #### F ETIBC #### [facility] [address] [address] [address] Rigo Barker Performed By: #### I JOSE M #### [facility] [address] [address] [address] Rigo Barker TIBC DIRECT 307.0 ug/dL Normal 250.0-450.0 [facility] Comment on above: Performed By: #### F ETIBC #### [facility] [address] [place] [address] Dr. Rigo Barker LIPID PROFILEon 06-11-2022 CHOL-HDL RATIO NORM SEE BELOW Normal [facility] Comment on above: Result Comment: 3.3 - 4.4 LOW RISK 4.4 - 7.1 AVERAGE RISK 7.1 - 11.0 MODERATE RISK >11.0 HIGH RISK Performed By: #### T SH, T7, LIPID, CMP #### [facility] [address] [address] [address] Rigo Barker Cholesterol [Mass/Vol] 196 mg/dL Normal <=200 [facility] Comment on above: Performed By: #### T SH, T7, LIPID, CMP #### [facility] [address] [address] [address] Rigo Barker Cholesterol in HDL [Mass/Vol] 62 mg/dL Critically high 40-60 [facility] Comment on above: Performed By: #### T SH, T7, LIPID, CMP #### [facility] [address] [address] [address] Rigo Barker Cholesterol in LDL [Mass/Vol] 118.2 mg/dL Normal [facility] Comment on above: Performed By: #### T SH, T7, LIPID, CMP #### [facility] [address] [address] [address] Rigo Barker Cholesterol.total/Cho lesterol in HDL [Mass ratio] 3.2 {ratio} Normal [facility] Comment on above: Performed By: #### T SH, T7, LIPID, CMP #### [facility] [address] [place] [address] Dr. Rigo Barker HDL NORMAL > or = 60 mg/dl - LOW CARDIOVASCULAR RISK <40 mg/dl - HIGH CARDIOVASCULAR RISK Normal [facility] Comment on above: Performed By: #### T SH, T7, LIPID, CMP #### [facility] [address] [place] [address] Dr. Rigo Barker LDL CALC NORMAL SEE BELOW Normal [facility] Comment on above: Result Comment: <100 mg/dl OPTIMAL 100 - 129 mg/dl NEAR OR ABOVE OPTIMAL 130 - 159 mg/dl BORDERLINE HIGH 160 - 189 mg/dl HIGH >190 mg/dl VERY HIGH Performed By: #### T SH, T7, LIPID, CMP #### [facility] [address] [address] [address] Rigo Barker Triglyceride [Mass/Vol] 79 mg/dL Normal <=150 [facility] Comment on above: Performed By: #### T SH, T7, LIPID, CMP #### [facility] [address] [address] [address] Rigo Barker VLDL CALC 15.8 mg/dL Normal [facility] Comment on above: Performed By: #### T SH, T7, LIPID, CMP #### [facility] [address] [address] [address] Rigo Barker PROF 14(COMP METB)on 022 Albumin [Mass/Vol] 3.6 g/dL Normal 3.4-5.0 [facility] Comment on above: Performed By: #### T SH, T7, LIPID, CMP #### [facility] [address] [place] [address] Dr. Rigo Barker Albumin/Globulin [Mass ratio] 0.9 {ratio} Normal [facility] Comment on above: Performed By: #### T SH, T7, LIPID, CMP #### [facility] [address] [place] [address] Dr. Rigo Barker ALP [Catalytic activity/Vol] 80 U/L Normal 46-116 [facility] Comment on above: Performed By: #### T SH, T7, LIPID, CMP #### [facility] [address] [place] [address] Dr. Rigo Barker ALT [Catalytic activity/Vol] 39 U/L Normal 14-59 [facility] Comment on above: Performed By: #### T SH, T7, LIPID, CMP #### [facility] [address] [address] [address] Rigo Barker Anion gap [Moles/Vol] 15.6 mmol/L Normal [facility] Comment on above: Performed By: #### T SH, T7, LIPID, CMP #### [facility] [address] [place] [address] Dr. Rigo Barker AST [Catalytic activity/Vol] 17 U/L Normal 15-37 [facility] Comment on above: Performed By: #### T SH, T7, LIPID, CMP #### [facility] [address] [place] [address] Dr. Rigo Barker Bilirubin [Mass/Vol] 0.2 mg/dL Normal 0.2-1.0 [facility] Comment on above: Performed By: #### T SH, T7, LIPID, CMP #### [facility] [address] [place] [address] Dr. Rigo Barker Calcium [Mass/Vol] 9.1 mg/dL Normal 8.5-10.1 [facility] Comment on above: Performed By: #### T SH, T7, LIPID, CMP #### [facility] [address] [place] [address] Dr. Rigo Barker Chloride [Moles/Vol] 103 mmol/L Normal 98-107 [facility] Comment on above: Performed By: #### T SH, T7, LIPID, CMP #### [facility] [address] [place] [address] Dr. Rigo Barker CO2 [Moles/Vol] 24.1 mmol/L Normal 21.0-32.0 [facility] Comment on above: Performed By: #### T SH, T7, LIPID, CMP #### [facility] [address] [place] [address] Dr. Rigo Barker Creatinine [Mass/Vol] 0.89 mg/dL Normal 0.55-1.02 [facility] Comment on above: Performed By: #### T SH, T7, LIPID, CMP #### [facility] [address] [place] [address] Dr. Rigo Barker EGFR-AF MALAYSIAN >60 Normal >=60 [facility] Comment on above: Performed By: #### T SH, T7, LIPID, CMP #### [facility] [address] [place] [address] Dr. Rigo Barker EGFR-NON AF MALAYSIAN >60 Normal >=60 [facility] Comment on above: Performed By: #### T SH, T7, LIPID, CMP #### [facility] [address] [place] [address] Dr. Rigo Barker Globulin (S) [Mass/Vol] 3.9 g/dL Normal [facility] Comment on above: Performed By: #### T SH, T7, LIPID, CMP #### [facility] [address] [address] [address] Rigo Barker Glucose [Mass/Vol] 102 mg/dL Normal 74-106 [facility] Comment on above: Performed By: #### T SH, T7, LIPID, CMP #### [facility] [address] [place] [address] Dr. Rigo Barker Potassium [Moles/Vol] 3.7 mmol/L Normal 3.5-5.1 [facility] Comment on above: Performed By: #### T SH, T7, LIPID, CMP #### [facility] [address] [place] [address] Dr. Rigo Barker Protein [Mass/Vol] 7.5 g/dL Normal 6.4-8.2 [facility] Comment on above: Performed By: #### T SH, T7, LIPID, CMP #### [facility] [address] [place] [address] Dr. Rigo Barker Sodium [Moles/Vol] 139 mmol/L Normal 136-145 [facility] Comment on above: Performed By: #### T SH, T7, LIPID, CMP #### [facility] [address] [place] [address] Dr. Rigo Barker Urea nitrogen [Mass/Vol] 12.0 mg/dL Normal 7.0-18.0 [facility] Comment on above: Performed By: #### T SH, T7, LIPID, CMP #### [facility] [address] [place] [address] Dr. Rigo Barker Urea nitrogen/Creatinine [Mass ratio] 13.5 mg/mg Normal [facility] Comment on above: Performed By: #### T SH, T7, LIPID, CMP #### [facility] [address] [place] [address] Dr. Rigo Barker TSHon 06-11-2022 TSH 2.871 uIU/mL Normal 0.358-3.740 [facility] Comment on above: Performed By: #### T SH, T7, LIPID, CMP #### [facility] [address] [place], [place] [address] Dr. Rigo Barker CBC AUTO DIFFon 06-30-2021 BASO # 0.1 103/ul Normal 0.0-0.1 [facility] Comment on above: Performed By: #### C BC #### [facility] [address] [id number] Alix Cecile Basophils/100 WBC (Bld) 0.6 % Normal 0.2-2.0 [facility] Comment on above: Performed By: #### C BC #### [facility] [address] [id number] Alix Cecile EO # 0.2 103/ul Normal 0.0-0.7 [facility] Comment on above: Performed By: #### C BC #### [facility] [address] [id number] Alix Cecile Eosinophils/100 WBC (Bld) 2.5 % Normal 0.9-7.0 [facility] Comment on above: Performed By: #### C BC #### [facility] [address] [id number] Alix Cecile Erythrocyte distribution width (RBC) [Ratio] 14.5 % Normal 11.0-15.0 [facility] Comment on above: Performed By: #### C BC #### [facility] [address] [id number] Alix Cecile Hematocrit (Bld) [Volume fraction] 34.8 % Critically low 36.0-48.0 [facility] Comment on above: Performed By: #### C BC #### [facility] [address] [id number] Alix Cecile Hemoglobin (Bld) [Mass/Vol] 11.2 g/dL Critically low 12.0-16.0 [facility] Comment on above: Performed By: #### C BC #### [facility] [address] [id number] Alix Cecile IG # 0.04 10e3/ul Critically high 0.00-0.03 [facility] Comment on above: Performed By: #### C BC #### [facility] [address] [id number] Alix Cecile IG % 0.5 % Normal 0.0-0.5 [facility] Comment on above: Performed By: #### C BC #### [facility] [address] [place], [place] [id number] Alix Cecile LYMPH # 2.5 103/ul Normal 1.2-3.8 [facility] Comment on above: Performed By: #### C BC #### [facility] [address] [place] [address] Alixjessi Huber Lymphocytes/100 WBC (Bld) 30.1 % Normal 20.5-60.0 [facility] Comment on above: Performed By: #### C BC #### [facility] [address] [place] [address] Alixjessi Huber MANUAL DIFF REQ NO Normal [facility] Comment on above: Performed By: #### C BC #### [facility] [address] [place], [place] [id number] Alix Cecile MCH (RBC) [Entitic mass] 27.1 pg Normal 26.7-34.0 [facility] Comment on above: Performed By: #### C BC #### [facility] [address] [place] [address] Alixjessi Huber MCHC (RBC) [Mass/Vol] 32.2 g/dL Normal 29.9-35.2 [facility] Comment on above: Performed By: #### C BC #### [facility] [address] [place], [place] [id number] Alix Cecile MCV (RBC) [Entitic vol] 84.1 fL Normal 81.0-99.0 [facility] Comment on above: Performed By: #### C BC #### [facility] [address] [place] [address] Alix Cecile MONO # 0.6 103/ul Normal 0.3-0.8 [facility] Comment on above: Performed By: #### C BC #### [facility] [address] [place], [place] [id number] Alixjessi De La Vegaen Monocytes/100 WBC (Bld) 6.7 % Normal 1.7-12.0 [facility] Comment on above: Performed By: #### C BC #### [facility] [address] [place], [place] [id number] Alix Huber NEUT # 4.9 103/ul Normal 1.4-6.5 [facility] Comment on above: Performed By: #### C BC #### [facility] [address] [place], [place] [id number] Alix Huber Neutrophils/100 WBC (Bld) 59.6 % Normal 43.0-75.0 [facility] Comment on above: Performed By: #### C BC #### [facility] [address] [place], [place] [id number] Alix Huber Platelet mean volume (Bld) [Entitic vol] 10.1 fL Normal 9.5-13.5 [facility] Comment on above: Performed By: #### C BC #### [facility] [address] [place], [place] [id number] Alix Cecile PLT 299 103/ul Normal 150-450 [facility] Comment on above: Performed By: #### C BC #### [facility] [address] [place], [place] [id number] Alix De La Vegaen RBC 4.14 106/ul Critically low 4.20-5.40 The [facility] Comment on above: Performed By: #### C BC #### [facility] [address] [place], [place] [id number] Alixjessi De La Vegaen WBC 8.3 103/ul Normal 4.0-11.0 [facility] Comment on above: Performed By: #### C BC #### [facility] [address] [place], [place] [id number] Alix Huber IRONon 06-30-2021 Iron [Mass/Vol] 40.0 ug/dL Normal 37.0-170.0 [facility] Comment on above: Performed By: #### F ETIBC #### [facility] [address] [place], [place] [id number] Dr. Rigo Barker Encounters Encounter Date Encounter Type Care Provider Facility Start: 06-12-2022 Encounter for genera l adult medical examination without abnormal findings GIDEON FELIX [facility] Start: 06-11-2022 End: 06-12-2022 ambulatory GIDEON FELIX Facility:[facility] Start: 06-11-2022 End: 06-12-2022 Encounter for general adult medical examination without abnormal findings GIDEON FELIX Facility:[facility] Start: 06-30-2021 End: 07-01-2021 ambulatory GIDEONLOVE FELIX Facility:[facility] Payers Date Payer Category Payer Unknown [id number] 1980 Unknown [id number] 1959 Private Health Insurance [id number] Summary Purpose Family History No Family History Records Found Advance Directives No Advanced Directives Records Found Additional Source Comments INFORMATION SOURCE (unrecogn ized section and content) DATE CREATED AUTHOR 06/16/2022 [facility] FOR RECORDS PERTAINING TO PATIENTS WHO ARE [...] BE BASED ON THE PRIMARY CLINICAL RECORDS. [facility]. provides no warranty or guarantee of the accuracy or completeness of information in this document.
[2024-08-08 09:19] LABS: C Reactive Protein <0.50 mg/dL (<=0.50); Chol HDL Ratio 2.2; Cholesterol 177 mg/dL (<=200); Free T3 2.36 pg/mL (2.18-3.98); HDL Cholesterol 79 mg/dL (40-60); Thyroid Stimulating Hormone 3.191 uIU/mL (0.358-3.740); Triglycerides 67 mg/dL (<=150); Uric Acid 5.3 mg/dL (2.6-6.0); VLDL CHOLESTEROL 13.4 mg/dL
[2024-08-08 10:19] LABS: Estimated Average Glucose 97 mg/dL
[2024-08-09 08:09] LABS: Antistreptolysin O Ab <20.0 IU/mL (0.0-200.0); Rheumatoid Factor (RF) <10.0 IU/mL (<14.0)
[2024-08-10 12:08] LABS: Insulin 6.8 uIU/mL (2.6-24.9)
== END 2024-08-08 08:05 | disposition home or self-care (01) ==
LOC: LAB 08:04
PROVIDERS: PCP Nurse Practitioner Family; Visit Provider Nurse Practitioner Family
DX: Z00.00 Encounter for general adult medical examination without abnormal findings (principal)
CPT/HCPCS: 36415; 80061; 83036; 83525; 84436; 84443; 84481; 84550; 86038; 86060; 86140; 86431

== ENCOUNTER 2024-10-20 16:33 | Outpatient (OUT) | payer OTHER, SELFPAY ==
--- OUTSIDE RECORDS SUMMARY | 2024-10-20 16:53 | XMS_ITS | CCD ---
Author Organization [facility] Care Team Providers Care Can Washer Name Role Phone GIDEON FELIX Admitting Unavailable [...] Insulin 61.2 uIU/mL Critically high 2.6-24.9 [facility] Comment on above: Performed By: #### I NSULIN #### [facility] [address] [place] [address] Dr. Rigo Barker CBC AUTO DIFFon 06-11-2022 BASO # 0.1 103/ul Normal 0.0-0.1 [facility] Comment on above: Performed By: #### F ETIBC #### [facility] [address] [address] [address] Rigo Barker Basophils/100 WBC (Bld) 0.7 % Normal 0.2-2.0 [facility] Comment on above: Performed By: #### F ETIBC #### [facility] [address] [place] [address] Dr. Rigo Barker EO # 0.2 103/ul Normal 0.0-0.7 [facility] Comment on above: Performed By: #### F ETIBC #### [facility] [address] [place] [address] Dr. Rigo Barker Eosinophils/100 WBC (Bld) 2.7 % Normal 0.9-7.0 [facility] Comment on above: Performed By: #### F ETIBC #### [facility] [address] [place] [address] Dr. Rigo Barker Erythrocyte distribution width (RBC) [Ratio] 13.9 % Normal 11.0-15.0 [facility] Comment on above: Performed By: #### F ETIBC #### [facility] [address] [place] [address] Dr. Rigo Barker Hematocrit (Bld) [Volume fraction] 40.6 % Normal 36.0-48.0 [facility] Comment on above: Performed By: #### F ETIBC #### [facility] [address] [place] [address] Dr. Rigo Barker Hemoglobin (Bld) [Mass/Vol] 13.0 g/dL Normal 12.0-16.0 [facility] Comment on above: Performed By: #### F ETIBC #### [facility] [address] [place] [address] Dr. Rigo Barker IG # 0.04 10e3/ul Critically high 0.00-0.03 [facility] Comment on above: Performed By: #### F ETIBC #### [facility] [address] [place] [address] Dr. Rigo Barker IG % 0.5 % Normal 0.0-0.5 [facility] Comment on above: Performed By: #### F ETIBC #### [facility] [address] [place] [address] Dr. Rigo Barker LYMPH # 2.2 103/ul Normal 1.2-3.8 [facility] Comment on above: Performed By: #### F ETIBC #### [facility] [address] [place] [address] Dr. Rigo Barker Lymphocytes/100 WBC (Bld) 28.9 % Normal 20.5-60.0 [facility] Comment on above: Performed By: #### F ETIBC #### [facility] [address] [place] [address] Dr. Rigo Barker MANUAL DIFF REQ NO Normal [facility] Comment on above: Performed By: #### F ETIBC #### [facility] [address] [place] [address] Dr. Rigo Barker MCH (RBC) [Entitic mass] 26.0 pg Critically low 26.7-34.0 [facility] Comment on above: Performed By: #### F ETIBC #### [facility] [address] [place] [address] Dr. Rigo Barker MCHC (RBC) [Mass/Vol] 32.0 g/dL Normal 29.9-35.2 [facility] Comment on above: Performed By: #### F ETIBC #### [facility] [address] [place] [address] Dr. Rigo Barker MCV (RBC) [Entitic vol] 81.2 fL Normal 81.0-99.0 [facility] Comment on above: Performed By: #### F ETIBC #### [facility] [address] [place] [address] Dr. Rigo Barker MONO # 0.5 103/ul Normal 0.3-0.8 [facility] Comment on above: Performed By: #### F ETIBC #### [facility] [address] [place] [address] Dr. Rigo Barker Monocytes/100 WBC (Bld) 7.2 % Normal 1.7-12.0 [facility] Comment on above: Performed By: #### F ETIBC #### [facility] [address] [place] [address] Dr. Rigo Barker NEUT # 4.5 103/ul Normal 1.4-6.5 [facility] Comment on above: Performed By: #### F ETIBC #### [facility] [address] [place] [address] Dr. Rigo Barker Neutrophils/100 WBC (Bld) 60.0 % Normal 43.0-75.0 [facility] Comment on above: Performed By: #### F ETIBC #### [facility] [address] [address] [address] Rigo Barker Platelet mean volume (Bld) [Entitic vol] 10.1 fL Normal 9.5-13.5 [facility] Comment on above: Performed By: #### F ETIBC #### [facility] [address] [place] [address] Dr. Rigo Barker PLT 259 103/ul Normal 150-450 [facility] Comment on above: Performed By: #### F ETIBC #### [facility] [address] [place] [address] Dr. Rigo Barker RBC 5.00 106/ul Normal 4.20-5.40 [facility] Comment on above: Performed By: #### F ETIBC #### [facility] [address] [place] [address] Dr. Rigo Barker WBC 7.5 103/ul Normal 4.0-11.0 [facility] Comment on above: Performed By: #### F ETIBC #### [facility] [address] [place] [address] Dr. Rigo Barker FERRITINon 06-11-2022 Ferritin [Mass/Vol] 44.0 ng/mL Normal 6.2-137.0 [facility] Comment on above: Performed By: #### F ERR #### [facility] [address] [place] [address] Dr. Rigo Barker FREE THYROXINE INDEX T7on FTI 3.06 Normal 1.30-4.50 [facility] Comment on above: Performed By: #### T SH, T7, LIPID, CMP #### [facility] [address] [place] [address] Dr. Rigo Barker T3U 30.0 % Normal 30.0-39.0 [facility] Comment on above: Performed By: #### T SH, T7, LIPID, CMP #### [facility] [address] [place] [address] Dr. Rigo Barker T4 [Mass/Vol] 10.20 ug/dL Normal 4.80-13.90 [facility] Comment on above: Performed By: #### T SH, T7, LIPID, CMP #### [facility] [address] [address] [address] Rigo Barker GLYCOHEMOGLOBIN A1Con 2021 ADA RECOMMENDATION SEE BELOW Normal [facility] Comment on above: Result Comment: ADA RECOMMENDED LIMIT 4.0 - 6.0 ADA THERAPEUTIC TARGET < 7.0 ACTION SUGGESTED > 7.0 Performed By: #### A 1C #### [facility] [address] [address] [address] Rigo Barker Glucose [Mass/Vol] 108 mg/dL Normal [facility] Comment on above: Performed By: #### A 1C #### [facility] [address] [address] [address] Rigo Barker HbA1c (Bld) [Mass fraction] 5.4 % Normal 4.5-6.2 [facility] Comment on above: Performed By: #### A 1C #### [facility] [address] [address] [address] Rigo Barker IRON AND TIBCon 06-11-2022 % SATURATION 9.8 % Normal [facility] Comment on above: Performed By: #### F ETIBC #### [facility] [address] [address] [address] Rigo Barker Iron [Mass/Vol] 30.0 ug/dL Critically low 50.0-170.0 [facility] Comment on above: Performed By: #### F ETIBC #### [facility] [address] [address] [address] Rigo Barker Performed By: #### I JOSE M #### [facility] [address] [address] [address] Rigo Barker TIBC DIRECT 307.0 ug/dL Normal 250.0-450.0 [facility] Comment on above: Performed By: #### F ETIBC #### [facility] [address] [place] [address] Dr. Rigo Barker LIPID PROFILEon 06-11-2022 CHOL-HDL RATIO NORM SEE BELOW Normal [facility] Comment on above: Result Comment: 3.3 - 4.4 LOW RISK 4.4 - 7.1 AVERAGE RISK 7.1 - 11.0 MODERATE RISK >11.0 HIGH RISK Performed By: #### T SH, T7, LIPID, CMP #### [facility] [address] [address] [address] Rigo Barker Cholesterol [Mass/Vol] 196 mg/dL Normal <=200 [facility] Comment on above: Performed By: #### T SH, T7, LIPID, CMP #### [facility] [address] [address] [address] Rigo Barker Cholesterol in HDL [Mass/Vol] 62 mg/dL Critically high 40-60 [facility] Comment on above: Performed By: #### T SH, T7, LIPID, CMP #### [facility] [address] [address] [address] Rigo Barker Cholesterol in LDL [Mass/Vol] 118.2 mg/dL Normal [facility] Comment on above: Performed By: #### T SH, T7, LIPID, CMP #### [facility] [address] [address] [address] Rigo Barker Cholesterol.total/Cho lesterol in HDL [Mass ratio] 3.2 {ratio} Normal [facility] Comment on above: Performed By: #### T SH, T7, LIPID, CMP #### [facility] [address] [place] [address] Dr. Rigo Barker HDL NORMAL > or = 60 mg/dl - LOW CARDIOVASCULAR RISK <40 mg/dl - HIGH CARDIOVASCULAR RISK Normal [facility] Comment on above: Performed By: #### T SH, T7, LIPID, CMP #### [facility] [address] [place] [address] Dr. Rigo Barker LDL CALC NORMAL SEE BELOW Normal [facility] Comment on above: Result Comment: <100 mg/dl OPTIMAL 100 - 129 mg/dl NEAR OR ABOVE OPTIMAL 130 - 159 mg/dl BORDERLINE HIGH 160 - 189 mg/dl HIGH >190 mg/dl VERY HIGH Performed By: #### T SH, T7, LIPID, CMP #### [facility] [address] [address] [address] Rigo Barker Triglyceride [Mass/Vol] 79 mg/dL Normal <=150 [facility] Comment on above: Performed By: #### T SH, T7, LIPID, CMP #### [facility] [address] [address] [address] Rigo Barker VLDL CALC 15.8 mg/dL Normal [facility] Comment on above: Performed By: #### T SH, T7, LIPID, CMP #### [facility] [address] [address] [address] Rigo Barker PROF 14(COMP METB)on 022 Albumin [Mass/Vol] 3.6 g/dL Normal 3.4-5.0 [facility] Comment on above: Performed By: #### T SH, T7, LIPID, CMP #### [facility] [address] [place] [address] Dr. Rigo Barker Albumin/Globulin [Mass ratio] 0.9 {ratio} Normal [facility] Comment on above: Performed By: #### T SH, T7, LIPID, CMP #### [facility] [address] [place] [address] Dr. Rigo Barker ALP [Catalytic activity/Vol] 80 U/L Normal 46-116 [facility] Comment on above: Performed By: #### T SH, T7, LIPID, CMP #### [facility] [address] [place] [address] Dr. Rigo Barker ALT [Catalytic activity/Vol] 39 U/L Normal 14-59 [facility] Comment on above: Performed By: #### T SH, T7, LIPID, CMP #### [facility] [address] [address] [address] Rigo Barker Anion gap [Moles/Vol] 15.6 mmol/L Normal [facility] Comment on above: Performed By: #### T SH, T7, LIPID, CMP #### [facility] [address] [place] [address] Dr. Rigo Barker AST [Catalytic activity/Vol] 17 U/L Normal 15-37 [facility] Comment on above: Performed By: #### T SH, T7, LIPID, CMP #### [facility] [address] [place] [address] Dr. Rigo Barker Bilirubin [Mass/Vol] 0.2 mg/dL Normal 0.2-1.0 [facility] Comment on above: Performed By: #### T SH, T7, LIPID, CMP #### [facility] [address] [place] [address] Dr. Rigo Barker Calcium [Mass/Vol] 9.1 mg/dL Normal 8.5-10.1 [facility] Comment on above: Performed By: #### T SH, T7, LIPID, CMP #### [facility] [address] [place] [address] Dr. Rigo Barker Chloride [Moles/Vol] 103 mmol/L Normal 98-107 [facility] Comment on above: Performed By: #### T SH, T7, LIPID, CMP #### [facility] [address] [place] [address] Dr. Rigo Barker CO2 [Moles/Vol] 24.1 mmol/L Normal 21.0-32.0 [facility] Comment on above: Performed By: #### T SH, T7, LIPID, CMP #### [facility] [address] [place] [address] Dr. Rigo Barker Creatinine [Mass/Vol] 0.89 mg/dL Normal 0.55-1.02 [facility] Comment on above: Performed By: #### T SH, T7, LIPID, CMP #### [facility] [address] [place] [address] Dr. Rigo Barker EGFR-AF HUNGARIAN >60 Normal >=60 [facility] Comment on above: Performed By: #### T SH, T7, LIPID, CMP #### [facility] [address] [place] [address] Dr. Rigo Barker EGFR-NON AF HUNGARIAN >60 Normal >=60 [facility] Comment on above: Performed By: #### T SH, T7, LIPID, CMP #### [facility] [address] [place] [address] Dr. Rigo Barker Globulin (S) [Mass/Vol] 3.9 g/dL Normal [facility] Comment on above: Performed By: #### T SH, T7, LIPID, CMP #### [facility] [address] [address] [address] Rigo Barker Glucose [Mass/Vol] 102 mg/dL Normal 74-106 [facility] Comment on above: Performed By: #### T SH, T7, LIPID, CMP #### [facility] [address] [place] [address] Dr. Rigo Barker Potassium [Moles/Vol] 3.7 mmol/L Normal 3.5-5.1 [facility] Comment on above: Performed By: #### T SH, T7, LIPID, CMP #### [facility] [address] [place] [address] Dr. Rigo Barker Protein [Mass/Vol] 7.5 g/dL Normal 6.4-8.2 [facility] Comment on above: Performed By: #### T SH, T7, LIPID, CMP #### [facility] [address] [place] [address] Dr. Rigo Barker Sodium [Moles/Vol] 139 mmol/L Normal 136-145 [facility] Comment on above: Performed By: #### T SH, T7, LIPID, CMP #### [facility] [address] [place] [address] Dr. Rigo Barker Urea nitrogen [Mass/Vol] 12.0 mg/dL Normal 7.0-18.0 [facility] Comment on above: Performed By: #### T SH, T7, LIPID, CMP #### [facility] [address] [place] [address] Dr. Rigo Barker Urea nitrogen/Creatinine [Mass ratio] 13.5 mg/mg Normal [facility] Comment on above: Performed By: #### T SH, T7, LIPID, CMP #### [facility] [address] [place] [address] Dr. Rigo Barker TSHon 06-11-2022 TSH 2.871 uIU/mL Normal 0.358-3.740 [facility] Comment on above: Performed By: #### T SH, T7, LIPID, CMP #### [facility] [address] [place], [place] [address] Dr. Rigo Barker CBC AUTO DIFFon 06-30-2021 BASO # 0.1 103/ul Normal 0.0-0.1 [facility] Comment on above: Performed By: #### C BC #### [facility] [address] [id number] Alix Cecile Basophils/100 WBC (Bld) 0.6 % Normal 0.2-2.0 [facility] Comment on above: Performed By: #### C BC #### [facility] [address] [id number] Alix Cecile EO # 0.2 103/ul Normal 0.0-0.7 [facility] Comment on above: Performed By: #### C BC #### [facility] [address] [id number] Alix Cecile Eosinophils/100 WBC (Bld) 2.5 % Normal 0.9-7.0 [facility] Comment on above: Performed By: #### C BC #### [facility] [address] [id number] Alix Cecile Erythrocyte distribution width (RBC) [Ratio] 14.5 % Normal 11.0-15.0 [facility] Comment on above: Performed By: #### C BC #### [facility] [address] [id number] Alix Cecile Hematocrit (Bld) [Volume fraction] 34.8 % Critically low 36.0-48.0 [facility] Comment on above: Performed By: #### C BC #### [facility] [address] [id number] Alix Cecile Hemoglobin (Bld) [Mass/Vol] 11.2 g/dL Critically low 12.0-16.0 [facility] Comment on above: Performed By: #### C BC #### [facility] [address] [id number] Alix Cecile IG # 0.04 10e3/ul Critically high 0.00-0.03 [facility] Comment on above: Performed By: #### C BC #### [facility] [address] [id number] Alix Cecile IG % 0.5 % Normal 0.0-0.5 [facility] Comment on above: Performed By: #### C BC #### [facility] [address] [place], [place] [id number] Alix Cecile LYMPH # 2.5 103/ul Normal 1.2-3.8 [facility] Comment on above: Performed By: #### C BC #### [facility] [address] [place] [address] Alixjessi Huber Lymphocytes/100 WBC (Bld) 30.1 % Normal 20.5-60.0 [facility] Comment on above: Performed By: #### C BC #### [facility] [address] [place] [address] Alixjessi Huber MANUAL DIFF REQ NO Normal [facility] Comment on above: Performed By: #### C BC #### [facility] [address] [place], [place] [id number] Alix Cecile MCH (RBC) [Entitic mass] 27.1 pg Normal 26.7-34.0 [facility] Comment on above: Performed By: #### C BC #### [facility] [address] [place] [address] Alixjessi Huber MCHC (RBC) [Mass/Vol] 32.2 g/dL Normal 29.9-35.2 [facility] Comment on above: Performed By: #### C BC #### [facility] [address] [place], [place] [id number] Alix Cecile MCV (RBC) [Entitic vol] 84.1 fL Normal 81.0-99.0 [facility] Comment on above: Performed By: #### C BC #### [facility] [address] [place] [address] Alix Cecile MONO # 0.6 103/ul Normal 0.3-0.8 [facility] Comment on above: Performed By: #### C BC #### [facility] [address] [place], [place] [id number] Alixjessi De La Vegaen Monocytes/100 WBC (Bld) 6.7 % Normal 1.7-12.0 [facility] Comment on above: Performed By: #### C BC #### [facility] [address] [place], [place] [id number] Alix Huber NEUT # 4.9 103/ul Normal 1.4-6.5 [facility] Comment on above: Performed By: #### C BC #### [facility] [address] [place], [place] [id number] Alix Huber Neutrophils/100 WBC (Bld) 59.6 % Normal 43.0-75.0 [facility] Comment on above: Performed By: #### C BC #### [facility] [address] [place], [place] [id number] Alix Huber Platelet mean volume (Bld) [Entitic vol] 10.1 fL Normal 9.5-13.5 [facility] Comment on above: Performed By: #### C BC #### [facility] [address] [place], [place] [id number] Alix Cecile PLT 299 103/ul Normal 150-450 [facility] Comment on above: Performed By: #### C BC #### [facility] [address] [place], [place] [id number] Alix De La Vegaen RBC 4.14 106/ul Critically low 4.20-5.40 [facility] Comment on above: Performed By: #### C BC #### [facility] [address] [place], [place] [id number] Alixjessi De La Vegaen WBC 8.3 103/ul Normal 4.0-11.0 [facility] Comment on above: Performed By: #### C BC #### [facility] [address] [place], [place] [id number] Alix Huber IRONon 06-30-2021 Iron [Mass/Vol] 40.0 ug/dL Normal 37.0-170.0 [facility] Comment on above: Performed By: #### F ETIBC #### [facility] [address] [place], [place] [id number] Dr. Rigo Barker Encounters Encounter Date Encounter Type Care Provider Facility Start: 06-12-2022 Encounter for genera l adult medical examination without abnormal findings GIDEON FELIX [facility] Start: 06-11-2022 End: 06-12-2022 ambulatory GIDEON FELIX Facility:[facility] Start: 06-11-2022 End: 06-12-2022 Encounter for general adult medical examination without abnormal findings GIDEON FELIX Facility:[facility] Start: 06-30-2021 End: 07-01-2021 ambulatory GIDEONLOVE FELIX Facility:[facility] Payers Date Payer Category Payer Unknown [id number] 1980 Unknown [id number] 1959 Private Health Insurance [id number] Summary Purpose Family History No Family History Records Found Advance Directives No Advanced Directives Records Found Additional Source Comments INFORMATION SOURCE (unrecogn ized section and content) DATE CREATED AUTHOR 06/16/2022 [facility] FOR RECORDS PERTAINING TO PATIENTS WHO [...] BE BASED ON THE PRIMARY CLINICAL RECORDS. [facility]. provides no warranty or guarantee of the accuracy or completeness of information in this document.
[2024-10-20 17:34] LABS: Basophils Percent Auto 0.4 % (0.2-2.0); Eosinophils Absolute Auto 0.1 10^3/uL (0.0-0.7); Eosinophils Percent Auto 1.3 % (0.9-7.0); Hematocrit 40.4 % (36.0-48.0); Hemoglobin 12.9 g/dL (12.0-16.0); Immature Granulocytes Abs Auto 0.03 10^3/uL (0.00-0.03); Immature Granulocytes Pct Auto 0.4 % (0.0-0.5); Lymphocytes Absolute Auto 2.7 10^3/uL (1.2-3.8); Lymphocytes Percent Auto 35.4 % (20.5-60.0); Mean Corpuscular HGB Conc 31.9 g/dL (29.9-35.2); Mean Corpuscular Volume 78.1 fL (81.0-99.0); Mean Platelet Volume 11.2 fL (9.5-13.5); Monocytes Absolute Auto 0.6 10^3/uL (0.3-0.8); Monocytes Percent Auto 7.8 % (1.7-12.0); Neutrophils Absolute Auto 4.2 10^3/uL (1.4-6.5); Neutrophils Percent Auto 54.7 % (43.0-75.0); Platelet Count 295 10^3/uL (150-450); Red Blood Count 5.17 10^6/uL (4.20-5.40); Red Cell Distribution Width 16.3 % (11.0-15.0); White Blood Count 7.7 10^3/uL (4.0-11.0)
[2024-10-20 17:57] LABS: Alanine Aminotransferase 27 U/L (14-59); Albumin Level 3.9 g/dL (3.4-5.0); Alkaline Phosphatase 118 U/L (46-116); Anion Gap 16.2; Aspartate Amino Transferase 15 U/L (15-37); BUN Creatinine Ratio 22.4; Bilirubin Total 0.3 mg/dL (0.2-1.0); Calcium 9.6 mg/dL (8.5-10.1); Carbon Dioxide 22.8 mmol/L (21.0-32.0); Chloride 104 mmol/L (98-107); Estimated GFR (African America >60 (>=60 mL/min/1.73m^2); Estimated GFR (Non-African Ame >60 (>=60 mL/min/1.73m^2); Globulin 3.8 g/dL; Glucose 87 mg/dL (74-106); Magnesium 2.1 mg/dL (1.8-2.4); Sodium 139 mmol/L (136-145); Total Protein 7.7 g/dL (6.4-8.2)
[2024-10-20 17:59] LABS: Percent Iron Saturation 7.6 %
[2024-10-22 08:11] LABS: Vitamin B12 1457 pg/mL (232-1245)
== END 2024-10-20 16:34 | disposition home or self-care (01) ==
LOC: LAB 16:33
PROVIDERS: PCP Nurse Practitioner Family
DX: K21.9 Gastro-esophageal reflux disease without esophagitis (principal); Z98.84 Bariatric surgery status; K90.9 Intestinal malabsorption, unspecified; I10 Essential (primary) hypertension; M19.90 Unspecified osteoarthritis, unspecified site; R60.9 Edema, unspecified
CPT/HCPCS: 36415; 80053; 82306; 82607; 82728; 82746; 83540; 83550; 83735; 84100; 84425; 85025

== ENCOUNTER 2025-05-07 11:24 | Outpatient (OUT) | payer OTHER, SELFPAY ==
[2025-05-07 11:39] LABS: Basophils Percent Auto 0.3 % (0.2-2.0); Eosinophils Absolute Auto 0.1 10^3/uL (0.0-0.7); Eosinophils Percent Auto 1.3 % (0.9-7.0); Hematocrit 38.4 % (36.0-48.0); Hemoglobin 12.6 g/dL (12.0-16.0); Immature Granulocytes Abs Auto 0.02 10^3/uL (0.00-0.03); Immature Granulocytes Pct Auto 0.3 % (0.0-0.5); Lymphocytes Absolute Auto 1.8 10^3/uL (1.2-3.8); Lymphocytes Percent Auto 30.8 % (20.5-60.0); Mean Corpuscular HGB Conc 32.8 g/dL (29.9-35.2); Mean Corpuscular Hemoglobin 27.9 pg (26.7-34.0); Mean Corpuscular Volume 85.1 fL (81.0-99.0); Mean Platelet Volume 11.1 fL (9.5-13.5); Monocytes Absolute Auto 0.4 10^3/uL (0.3-0.8); Monocytes Percent Auto 7.4 % (1.7-12.0); Neutrophils Absolute Auto 3.6 10^3/uL (1.4-6.5); Neutrophils Percent Auto 59.9 % (43.0-75.0); Platelet Count 240 10^3/uL (150-450); Red Blood Count 4.51 10^6/uL (4.20-5.40)
== END 2025-05-07 11:25 | disposition home or self-care (01) ==
LOC: LAB 11:24
PROVIDERS: PCP Nurse Practitioner Family; Visit Provider Nurse Practitioner Family
DX: D50.9 Iron deficiency anemia, unspecified (principal)
CPT/HCPCS: 36415; 83540; 85025

== ENCOUNTER 2025-10-13 13:47 | Outpatient (OUT) | payer OTHER, SELFPAY ==
--- OUTSIDE RECORDS SUMMARY | 2025-10-13 13:50 | XMS_ITS | Clinical Summary ---
Author Organization [facility] Address [address] [place] [address] Care Team Providers Care Assistant Corporation Counsel Name Role Phone Unavailable Primary Care Provider Unavailabl e Social History Tobacco UseTypesPacks/DayYears UsedDateSmoking Tobacco: Never AssessedUT Safety & EnvironmentAnswerDate RecordedFear of Current or Ex-PartnerNot on file 01/09/2024Emotionally AbusedNot on file01/09/2024hysically AbusedNot on file 01/09/2024Sexually AbusedNot on file01/09/2024hysically or Sexually AbusedNot on file01/09/2024CommentsUnknownSex and Gender InformationValueDate RecordedSex Assigned at BirthNot on fileLegal LluQdgbkm59/30/2022 12:34 AM EDT Gender IdentityNot on fileSexual OrientationNot on file Plan of Treatment Not on file
[2025-10-13 14:28] LABS: Hematocrit 39.4 % (36.0-48.0); Hemoglobin 13.1 g/dL (12.0-16.0); Immature Granulocytes Abs Auto 0.02 10^3/uL (0.00-0.03); Immature Granulocytes Pct Auto 0.3 % (0.0-0.5); Lymphocytes Absolute Auto 2.0 10^3/uL (1.2-3.8); Mean Corpuscular HGB Conc 33.2 g/dL (29.9-35.2); Mean Corpuscular Hemoglobin 28.6 pg (26.7-34.0); Mean Corpuscular Volume 86.0 fL (81.0-99.0); Platelet Count 250 10^3/uL (150-450); Red Blood Count 4.58 10^6/uL (4.20-5.40); White Blood Count 5.8 10^3/uL (4.0-11.0)
[2025-10-13 14:54] LABS: Alanine Aminotransferase 46 U/L (14-59); Albumin Globulin Ratio 1.1; Albumin Level 3.7 g/dL (3.4-5.0); Alkaline Phosphatase 100 U/L (46-116); Anion Gap 10.6; Aspartate Amino Transferase 21 U/L (15-37); Blood Urea Nitrogen 14.0 mg/dL (7.0-18.0); Calcium 9.0 mg/dL (8.5-10.1); Carbon Dioxide 26.2 mmol/L (21.0-32.0); Chloride 104 mmol/L (98-107); Estimated GFR (African America >60 (>=60 mL/min/1.73m^2); Estimated GFR (Non-African Ame >60 (>=60 mL/min/1.73m^2); Globulin 3.4 g/dL; Glucose 78 mg/dL (74-106); Magnesium 1.7 mg/dL (1.8-2.4); Potassium 3.8 mmol/L (3.5-5.1); Sodium 137 mmol/L (136-145); Total Protein 7.1 g/dL (6.4-8.2)
[2025-10-13 15:43] LABS: Iron 84.0 ug/dL (50.0-170.0); Percent Iron Saturation 22.9 %; Total Iron Binding Capacity 367.0 ug/dL (250.0-450.0)
[2025-10-13 16:09] LABS: Ferritin 22.0 ng/mL (8.0-252.0); Folate 22.50 ng/mL (8.60-58.90)
[2025-10-15 11:09] LABS: Vitamin B12 1167 pg/mL (232-1245)
== END 2025-10-13 13:48 | disposition home or self-care (01) ==
LOC: LAB 13:47
PROVIDERS: PCP Nurse Practitioner Family
DX: K21.00 Gastro-esophageal reflux disease with esophagitis, without bleeding (principal); Z98.84 Bariatric surgery status; K90.9 Intestinal malabsorption, unspecified; I10 Essential (primary) hypertension; M19.90 Unspecified osteoarthritis, unspecified site; R60.9 Edema, unspecified
CPT/HCPCS: 36415; 80053; 82306; 82607; 82728; 82746; 83540; 83550; 83735; 84100; 84425; 85025

== ENCOUNTER 2025-10-23 10:13 | Outpatient (OUT) | payer OTHER, SELFPAY ==
--- OUTSIDE RECORDS SUMMARY | 2025-10-23 10:15 | XMS_ITS | CCD ---
Author Organization [facility] Care Team Providers Care Filament Tester Name Role Phone GIDEON FELIX Admitting Unavailable GIDEON FELIX Primary Care Unavailable ISIDRO, GIDEON Consulting Unavailable ISIDRO, GIDEON Attending Unavailable ISIDRO, GIDEON Primary Care Unavailable ISIDRO, GIDEON Consulting Unavailable ISIDRO, GIDEON Attending Unavailable ISIDRO, GIDEON Admitting Unavailable Problems Active Problems Problem ClassificationProblemDateDocumented DateEpisodic/ChronicDeficiency and other anemia (1 source)Iron deficiency anemia, unspecified; Translations: [IRON DEFICIENCY ANEMIA UNSPECIFIED]Onset: 90-21-1627Leslbqzy Past or Other Problems Problem ClassificationProblemDateDocumented DateEpisodic/ChronicDeficiency and other anemia (4 sources)Anemia, unspecified; Translations: [ANEMIA UNSPECIFIED]Onset: 31-98-3314Nseavjjx Results Test NameValueInterpretationReference RangeFacilityINSULINon 28-24-6968Cfilvmk 61.2 uIU/mLCritically high2.6-24.9The [facility] HospitalComment on above: Performed By: #### INSULIN #### [facility] [address] [address] [address] Rigo Welch AUTO DIFFon [id number] #0.1 103/ulNormal0.0-0.1The [facility]ittman HospitalComment on above:Performed By: #### FETIBC #### [facility] [address] [address] [address] Rigo Pompaphils/100 WBC (Bld)0.7 %Normal0.2-2.0The [facility] Comment on above:Performed By: #### FETIBC #### [facility] [address] [place] [address] Dr. Rigo Henriquez #0.2 103/ulNormal0.0-0.7The [facility]ittman HospitalComment on above: Performed By: #### FETIBC #### [facility] [address] [place] [address] Dr. Rigo Sheppardosinophils/100 WBC (Bld)2.7 %Normal0.9-7.0The [facility] Comment on above:Performed By: #### FETIBC #### [facility] [address] [place] [address] Dr. Rigo Sheppardrythrocyte distribution width (RBC) [Ratio]13.9 %Btwtxu21.0-15.0 The [facility]ittman HospitalComment on above:Performed By: #### FETIBC #### [facility] [address] [place] [address] Dr. Rigo BarkerHematocrit (Bld) [Volume fraction]40.6 %Leznqw60.0-48.0The [facility]ittman HospitalComment on above:Performed By: #### FETIBC #### [facility] [address] [place] [address] Dr. Rigo BarkerHemoglobin (Bld) [Mass/Vol]13.0 g/xKEijxqx88.0-16.0The [facility]ittman HospitalComment on above:Performed By: #### FETIBC #### [facility] [address] [place] [address] Dr. Rigo Cantrell #0.04 10e3/ulCritically high0.00-0.03The [facility] Comment on above:Performed By: #### FETIBC #### [facility] [address] [place] [address] Dr. Rigo Cantrell %0.5 %Normal0.0-0.5The [facility]ittman HospitalComment on above: Performed By: #### FETIBC #### [facility] [address] [place] [address] Dr. Rigo Cormier #2.2 103/ulNormal1.2-3.8The [facility]ittman HospitalComment on above:Performed By: #### FETIBC #### [facility] [address] [place] [address] Dr. Rigo Medinamphocytes/100 WBC (Bld)28.9 %Hwkvfa41.5-60.0The [facility]ittman HospitalComment on above:Performed By: #### FETIBC #### [facility] [address] [place] [address] Dr. Rigo Jade DIFF REQNONormalThe [facility]-Rittman HospitalComment on above: Performed By: #### FETIBC #### [facility] [address] [place] [address] Dr. Rigo Rasmussen (RBC) [Entitic mass]26.0 pgCritically low26.7-34.0The [facility]ittman HospitalComment on above:Performed By: #### FETIBC #### [facility] [address] [place] [address] Dr. Rigo Rasmussen (RBC) [Mass/Vol]32.0 g/vTUsjwce68.9-35.2The [facility]ittman HospitalComment on above:Performed By: #### FETIBC #### [facility] [address] [place] [address] Dr. Rigo Rasmussen (RBC) [Entitic vol]81.2 aPToygis99.0-99.0The [facility]ittman HospitalComment on above:Performed By: #### FETIBC #### [facility] [address] [place] [address] Dr. Rigo Shore #0.5 103/ulNormal0.3-0.8The [facility]itt[facility] HospitalComment on above:Performed By: #### FETIBC #### [facility] [address] [place] [address] Dr. Rigo Kinseyocytes/100 WBC (Bld)7.2 %Normal1.7-12.0The [facility] Comment on above:Performed By: #### FETIBC #### [facility] [address] [place] [address] Dr. Rigo Garcia #4.5 103/ulNormal1.4-6.5The [facility]ittman HospitalComment on above:Performed By: #### FETIBC #### [facility] [address] [place] [address] Dr. Rgio Chairezutrophils/100 WBC (Bld)60.0 %Nkwtad66.0-75.0The [facility]ittman HospitalComment on above:Performed By: #### FETIBC #### [facility] [address] [place] [address] Dr. Rigo BarkerPlatelet mean volume (Bld) [Entitic vol]10.1 fLNormal9.5-13.5The [facility]itt[facility] HospitalComment on above:Performed By: #### FETIBC #### [facility] [address] [place] [address] Dr. Rigo BarkerPLT259 103/wkAgxuei871-032Cmz [facility] HospitalComment on above: Performed By: #### FETIBC #### [facility] [address] [place] [address] Dr. Rigo BarkerRBC5.00 106/ulNormal4.20-5.40The [facility]itt[facility] HospitalComment on above:Performed By: #### FETIBC #### [facility] [address] [place] [address] Dr. Rigo BarkerWBC7.5 103/ulNormal4.0-11.0The [facility]ittman HospitalComment on above: Performed By: #### FETIBC #### [facility] [address] [place] [address] Dr. Rigo BarkerFERRITINon 82-85-9077Xiwnnlfk [Mass/Vol]44.0 ng/mLNormal6.2-137.0 The [facility]ittman HospitalComment on above:Performed By: #### FERR #### [facility] [address] [place] [address] Dr. Rigo Marsh THYROXINE INDEX T7on 50-82-8425PAU9.31Cbhsfu6.30-4.50The [facility] Systemment on above:Performed By: #### TSH, T7, LIPID, CMP #### [facility] [address] [address] [address] Rigo BarkerT3U30.0 %Occobc53.0-39.0The [facility]itt[facility] HospitalComment on above: Performed By: #### TSH, T7, LIPID, CMP #### [facility] [address] [address] [address] Rigo BarkerT4 [Mass/Vol]10.20 ug/dLNormal4.80-13.90The [facility] Comment on above:Performed By: #### TSH, T7, LIPID, CMP #### [facility] [address] [address] [address] Rigo BarkerGLYCOHEMOGLOBIN A1Con 07-89-1085VQJ RECOMMENDATIONSEE BELOWNormal The [facility]ittman HospitalComment on above:Result Comment: ADA RECOMMENDED LIMIT 4.0 - 6.0 ADA THERAPEUTIC TARGET < 7.0 ACTION SUGGESTED > 7.0Performed By: #### A1C #### [facility] [address] [place] [address] Dr. Rigo BarkerGlucose [Mass/Vol]108 mg/dLNormalThe [facility]ittman HospitalComment on above:Performed By: #### A1C #### [facility] [address] [place] [address] Dr. Rigo BarkerHbA1c (Bld) [Mass fraction]5.4 %Normal4.5-6.2The [facility]ittman HospitalComment on above:Performed By: #### A1C #### [facility] [address] [place] [address] Dr. Rigo Herrera AND TIBCon 06-11-2022% SATURATION9.8 %NormalThe [facility]-Rittman HospitalComment on above:Performed By: #### FETIBC #### [facility] [address] [place] [address] Dr. Rigo Herrera [Mass/Vol]30.0 ug/dLCritically low50.0-170.0The [facility] HospitalComment on above:Performed By: #### FETIBC #### [facility] [address] [place] [address] Dr. Rigo BarkerPerformed By: #### IRON #### [facility] [address] [address] [address] Rigo BarkerTIBC KAKOFX604.0 ug/aYHzaznh627.0-450.0[facility] Comment on above:Performed By: #### FETIBC #### [facility] [address] [address] [address] Rigo SanchezID PROFILEon 02-73-9627KBHW-HDL RATIO NORMSEE BELOWUniversity Hospitals Lake West Medical CenterComment on above:Result Comment: 3.3 - 4.4 LOW RISK 4.4 - 7.1 AVERAGE RISK 7.1 - 11.0 MODERATE RISK >11.0 HIGH RISKPerformed By: #### TSH, T7, LIPID, CMP #### [facility] [address] [place] [address] Dr. Rigo Lojaesterol [Mass/Vol]196 mg/dLNormal<=200The [facility] Comment on above:Performed By: #### TSH, T7, LIPID, CMP #### [facility] [address] [address] [address] Rigo Lojaesterol in HDL [Mass/Vol]62 mg/dLCritically zywl61-94JwwMercy Health St. Anne HospitalComhillsdale hospital on above:Performed By: #### TSH, T7, LIPID, CMP #### [facility] [address] [address] [address] Rigo Lojaesterol in LDL [Mass/Vol]118.2 mg/dLUniversity Hospitals Lake West Medical CenterComment on above:Performed By: #### TSH, T7, LIPID, CMP #### [facility] [address] [address] [address] Rigo Sanchez.total/Cholesterol in HDL [Mass ratio]3.2 {ratio} NormalMercy Health St. Anne HospitalComhillsdale hospital on above:Performed By: #### TSH, T7, LIPID, CMP #### [facility] [address] [address] [address] Rigo Vital NORMAL> or = 60 mg/dl - LOW CARDIOVASCULAR RISK <40 mg/dl - HIGH CARDIOVASCULAR RISKNormalThe Karina HospitalComment on above:Performed By: #### TSH, T7, LIPID, CMP #### [facility] [address] [address] [address] Rigo Reyes CALC NORMALSEE BELOWUniversity Hospitals Lake West Medical CenterComment on above:Result Comment: <100 mg/dl OPTIMAL 100 - 129 mg/dl NEAR OR ABOVE OPTIMAL 130 - 159 mg/dl BORDERLINE HIGH 160 - 189 mg/dl HIGH >190 mg/dl VERY HIGH Performed By: #### TSH, T7, LIPID, CMP #### [facility] [address] [address] [address] Rigo BarkerTriglyceride [Mass/Vol]79 mg/dLNormal<=150The [facility] Comment on above:Performed By: #### TSH, T7, LIPID, CMP #### [facility] [address] [address] [address] Rigo BarkerVLDL CALC15.8 mg/dLNoDetwiler Memorial HospitalComment on above: Performed By: #### TSH, T7, LIPID, CMP #### [facility] [address] [place] [address] Dr. Rigo BarkerPROEmy 14(COMP METB)on 04-19-1160Cqpuhmt [Mass/Vol]3.6 g/dLNormal 3.4-5.0The [facility] on above:Performed By: #### TSH, T7, LIPID, CMP #### [facility] [address] [address] [address] Rigo BarkerAlbumin/Globulin [Mass ratio]0.9 {ratio}NormalThe [facility]ittman HospitalComment on above:Performed By: #### TSH, T7, LIPID, CMP #### [facility] [address] [address] [address] Rigo Peng [Catalytic activity/Vol]80 U/JJbewcw42-919Prf [facility] on above:Performed By: #### TSH, T7, LIPID, CMP #### [facility] [address] [address] [address] Rigo Landry [Catalytic activity/Vol]39 U/UGtqlns70-44Kvu [facility] HospitalComment on above:Performed By: #### TSH, T7, LIPID, CMP #### [facility] [address] [place] [address] Dr. Rigo BarkerAnion gap [Moles/Vol]15.6 mmol/LNormalMercy Health St. [facility] Comment on above:Performed By: #### TSH, T7, LIPID, CMP #### [facility] [address] [place] [address] Dr. Rigo BarkerAST [Catalytic activity/Vol]17 U/ERintpf63-75PskMercy Health St. Anne HospitalComment on above:Performed By: #### TSH, T7, LIPID, CMP #### [facility] [address] [place] [address] Dr. Rigo BarkerBilirubin [Mass/Vol]0.2 mg/dLNormal0.2-1.0[facility] Comment on above:Performed By: #### TSH, T7, LIPID, CMP #### [facility] [address] [place] [address] Dr. Rigo BarkerCalcium [Mass/Vol]9.1 mg/dLNormal8.5-10.1[facility] Comment on above:Performed By: #### TSH, T7, LIPID, CMP #### [facility] [address] [place] [address] Dr. Rigo BarkerChloride [Moles/Vol]103 mmol/PLzzpvd52-912FedMercy Health St. [facility] Hospital Comment on above:Performed By: #### TSH, T7, LIPID, CMP #### [facility] [address] [place] [address] Dr. Rigo BarkerCO2 [Moles/Vol]24.1 mmol/KBenhtg71.0-32.0[facility] Comment on above:Performed By: #### TSH, T7, LIPID, CMP #### [facility] [address] [place] [address] Dr. Rigo BarkerCreatinine [Mass/Vol]0.89 mg/dLNormal0.55-1.02The [facility]itt[facility] HospitalComment on above:Performed By: #### TSH, T7, LIPID, CMP #### [facility] [address] [address] [address] Rigo SheppardGFR-AF LITHUANIAN>60Normal>=60The [facility]ittman HospitalComment on above:Performed By: #### TSH, T7, LIPID, CMP #### [facility] [address] [address] [address] Rigo SheppardGFR-NON AF LITHUANIAN>60Normal>=60The [facility]itt[facility] HospitalComment on above:Performed By: #### TSH, T7, LIPID, CMP #### [facility] [address] [address] [address] Rigo BarkerGlobulin (S) [Mass/Vol]3.9 g/dLNormalThTriHealth McCullough-Hyde Memorial HospitalComment on above:Performed By: #### TSH, T7, LIPID, CMP #### [facility] [address] [place] [address] Dr. Rigo BarkerGlucose [Mass/Vol]102 mg/eGCamxfn49-407TvqMercy Health St. [facility] Hospital Comment on above:Performed By: #### TSH, T7, LIPID, CMP #### [facility] [address] [address] [address] Rigo BarkerPotassium [Moles/Vol]3.7 mmol/LNormal3.5-5.1The [facility] Comment on above:Performed By: #### TSH, T7, LIPID, CMP #### [facility] [address] [address] [address] Rigo BarkerProtein [Mass/Vol]7.5 g/dLNormal6.4-8.2The [facility] Comment on above:Performed By: #### TSH, T7, LIPID, CMP #### [facility] [address] [address] [address] Rigo BarkerSodium [Moles/Vol]139 mmol/KMudows138-734ChiMercy Health St. [facility] Comment on above:Performed By: #### TSH, T7, LIPID, CMP #### [facility] [address] [address] [address] Rigo BarkerUrea nitrogen [Mass/Vol]12.0 mg/dLNormal7.0-18.0The [facility] HospitalComment on above:Performed By: #### TSH, T7, LIPID, CMP #### [facility] [address] [place] [address] Dr. Rigo Arellano nitrogen/Creatinine [Mass ratio]13.5 mg/mgNormalThe [facility]ittman HospitalComment on above:Performed By: #### TSH, T7, LIPID, CMP #### [facility] [address] [place] [address] Dr. Rigo Rai 39-53-3171XBV0.871 uIU/mLNormal0.358-3.740The [facility]ittman HospitalComment on above:Performed By: #### TSH, T7, LIPID, CMP #### [facility] [address] [place] [address] Dr. Rigo ChakrabortyC AUTO DIFFon 70-88-8170NXBV #0.1 103/ulNormal0.0-0.1The [facility]ittman HospitalComment on above:Performed By: #### CBC #### [facility] [address] [place] [address] Alix KarenBasophils/100 WBC (Bld)0.6 %Normal0.2-2.0The [facility] Comment on above:Performed By: #### CBC #### [facility] [address] [place] [address] Alix KarenEO #0.2 103/ulNormal0.0-0.7The [facility]itt[facility] HospitalComment on above: Performed By: #### CBC #### [facility] [address] [place] [address] Alix KarenEosinophils/100 WBC (Bld)2.5 %Normal0.9-7.0The [facility] Comment on above:Performed By: #### CBC #### [facility] [address] [place] [address] Alix KarenErythrocyte distribution width (RBC) [Ratio]14.5 %Sglgby92.0-15.0The [facility]itt[facility] HospitalComment on above:Performed By: #### CBC #### [facility] [address] [address] Alix KarenHematocrit (Bld) [Volume fraction]34.8 %Critically low36.0-48.0The [facility]ittman HospitalComment on above:Performed By: #### CBC #### [facility] [address] [place] [address] Alix KarenHemoglobin (Bld) [Mass/Vol]11.2 g/dLCritically low12.0-16.0The [facility] HospitalComment on above:Performed By: #### CBC #### [facility] [address] [place] [address] Alix KarenIG #0.04 10e3/ulCritically high0.00-0.03The [facility]itt[facility] HospitalComment on above:Performed By: #### CBC #### [facility] [address] [place] [address] Alix KarenIG %0.5 %Normal0.0-0.5The [facility]ittman HospitalComment on above: Performed By: #### CBC #### [facility] [address] [place] [address] Alix KarenLYMPH #2.5 103/ulNormal1.2-3.8The [facility]ittman HospitalComment on above: Performed By: #### CBC #### [facility] [address] [place] [address] Alix KarenLymphocytes/100 WBC (Bld)30.1 %Xaqpvc59.5-60.0The [facility] Comment on above:Performed By: #### CBC #### [facility] [address] [place] [address] Alix KarenMANUAL DIFF REQNONormalThe [facility] HospitalComment on above: Performed By: #### CBC #### [facility] [address] [place] [address] Alix KarenMCH (RBC) [Entitic mass]27.1 uoWhujhc03.7-34.0The [facility] Comment on above:Performed By: #### CBC #### [facility] [address] [address] Alix HuberMCHC (RBC) [Mass/Vol]32.2 g/fFLlvzhb00.9-35.2The [facility] Comment on above:Performed By: #### CBC #### [facility] [address] [place] [address] Alix KarenMCV (RBC) [Entitic vol]84.1 bMEuasyd84.0-99.0[facility] Comment on above:Performed By: #### CBC #### [facility] [address] [place] [address] Alix KarenMONO #0.6 103/ulNormal0.3-0.8The [facility] HospitalComment on above: Performed By: #### CBC #### [facility] [address] [place] [address] Alix KarenMonocytes/100 WBC (Bld)6.7 %Normal1.7-12.0[facility] Comment on above:Performed By: #### CBC #### [facility] [address] [place] [address] Alix KarenNEUT #4.9 103/ulNormal1.4-6.5The [facility]itt[facility] HospitalComment on above: Performed By: #### CBC #### [facility] [address] [place] [address] Alix KarenNeutrophils/100 WBC (Bld)59.6 %Pwwppg58.0-75.0The [facility] Comment on above:Performed By: #### CBC #### [facility] [address] [place] [address] Alix KarenPlatelet mean volume (Bld) [Entitic vol]10.1 fLNormal9.5-13.5The [facility] HospitalComment on above:Performed By: #### CBC #### [facility] [address] [place] [address] Alix OvrzbDJB509 103/ggZczttb121-876Dcf [facility] HospitalComment on above: Performed By: #### CBC #### [facility] [address] [address] Alix KarenRBC4.14 106/ulCritically low4.20-5.40The [facility] HospitalComment on above:Performed By: #### CBC #### [facility] [address] [address] Alix De La VegaenWBC8.3 103/ulNormal4.0-11.0The [facility]man HospitalComment on above: Performed By: #### CBC #### [facility] [address] [address] Alix LuongRONon 39-54-6102Mydu [Mass/Vol]40.0 ug/eADccoup66.0-170.0The [facility] HospitalComment on above:Performed By: #### FETIBC #### [facility] [address] [place] [address] Dr. Rigo Barker Encounters Encounter DateEncounter TypeCare ProviderFacilityStart: 32-90-5387Pumqtbszo for general adult medical examination without abnormal findingsMIMELA Wilson Street Hospitaltart: 06-11-2022 End: 62-72-2183hzdelyfzumLABECL [facility]ENTERFacility:U6Jkkyd: 06-11-2022 End: 36-91-8706Ywipogpgk for general adult medical examination without abnormal findingsPAMELA [facility]ENTERFacility:H1Njzcb: 06-30-2021 End: 88-58-2737ivgodhcxakPTJSAO CRAMERFacility:H1 Payers DatePayer CategoryPayerPolicy [id number] Health [id number] Summary Purpose Family History No Family History Records Found Advance Directives No Advanced Directives Records Found Additional Source Comments INFORMATION SOURCE (unrecogn ized section and content) DATE CREATED AUTHOR 06/16/2022 [facility] FOR RECORDS PERTAINING TO PATIENTS WHO [...] BE BASED ON THE PRIMARY CLINICAL RECORDS. [facility], [facility]. provides no warranty or guarantee of the accuracy or completeness of information in this document.
--- OUTSIDE RECORDS SUMMARY | 2025-10-23 10:16 | XMS_ITS | Clinical Summary ---
Author Organization [facility] Address [address] [place] [address] Care Team Providers Care Top Cager Name Role Phone Unavailable Primary Care Provider Unavailabl e Social History Tobacco UseTypesPacks/DayYears UsedDateSmoking Tobacco: Never AssessedUT Safety & EnvironmentAnswerDate RecordedFear of Current or Ex-PartnerNot on file 01/09/2024Emotionally AbusedNot on file01/09/2024hysically AbusedNot on file 01/09/2024Sexually AbusedNot on file01/09/2024hysically or Sexually AbusedNot on file01/09/2024CommentsUnknownSex and Gender InformationValueDate RecordedSex Assigned at BirthNot on fileLegal GvoLylpjv89/30/2022 12:34 AM EDT Gender IdentityNot on fileSexual OrientationNot on file Plan of Treatment Not on file
[2025-10-23 10:59] LABS: Cholesterol 186 mg/dL (<=200); Free T3 2.38 pg/mL (2.18-3.98); HDL Cholesterol 79 mg/dL (40-60); Thyroid Stimulating Hormone 2.885 uIU/mL (0.358-3.740); Triglycerides 59 mg/dL (<=150); VLDL CHOLESTEROL 11.8 mg/dL
== END 2025-10-23 10:14 | disposition home or self-care (01) ==
LOC: LAB 10:13
PROVIDERS: PCP Nurse Practitioner Family; Visit Provider Nurse Practitioner Family
DX: Z00.00 Encounter for general adult medical examination without abnormal findings (principal)
CPT/HCPCS: 36415; 80061; 83036; 83525; 84436; 84443; 84481